=== PATIENT | male | born 1980 | race Caucasian/White ===

== ENCOUNTER → 2023-09-06 15:37 | Outpatient (CLI) | payer BC, SELFPAY ==
--- NOTE | ~2023-09-06 | MR_ITS ---
MRI of the left knee Clinical history: Internal derangement Technique: Coronal proton density and proton density-weighted images, sagittal proton-density and T2 fat-sat images, and axial proton-density fat-saturated images were acquired. Findings: Anterior and posterior cruciate ligaments are intact. Medial collateral ligament and the la teral collateral ligament complex are intact. Popliteus tendon is intact. No lateral meniscal tear seen. There is prominent horizontal/oblique tear involving the posterior hor n and body of medial meniscus. Articular cartilage is well preserved throughout the knee. Bone marrow signals are unremarkable. Extensor mechanism is intact. Minimal joint effusion present. No Davis's cyst. IMPRESSION: Horizontal tear of the posterior horn and body of the medial meniscus. Reviewed, dictated and finalized at location M. TION SPECIALIST
== END ==
PROVIDERS: PCP Family Medicine Sports Medicine; Visit Provider Family Medicine Sports Medicine
DX: S83.242A Other tear of medial meniscus, current injury, left knee, initial encounter (principal); M25.562 Pain in left knee; M23.92 Unspecified internal derangement of left knee
CPT/HCPCS: 73721

== ENCOUNTER → 2023-10-22 13:10 | Outpatient (CLI) | payer BC, SELFPAY ==
--- NOTE | ~2023-10-22 | MR_ITS ---
MRI of the right knee Clinical history: Pain Technique: Coronal proton density and proton density-weighted images, sagittal proton-density and T2 fat-sat images, and axial proton-density fat-saturated images were acquired. Findings: Anterior and posterior cruciate ligaments are intact. Medial collateral ligament and the la teral collateral ligament, proximal are intact. Popliteus tendon is intact. Suspected oblique undersurface tear of the peripheral aspect of the posterior horn the medial meniscu s. No lateral meniscal tear seen. Articular cartilage in the medial and lateral compartments is intact. There is mild chondromalacia of the central aspect of the femoral trochlea. Patellar cartilage is intact. Extensor mechanism is intact. No joint effusion or Davis's cyst. Impression: Suspected oblique undersurface tear of the peripheral aspect of the posterior horn of the medial meni scus versus intrasubstance degenerative signal. Mild chondral malacia the femoral trochlea. Reviewed, dictated and finalized at [facility]. STANT LABORATORY DIRECTOR Impression: Suspected oblique undersurface tear of the peripheral aspect of the posterior h orn of the medial meniscus versus intrasubstance degenerative signal. Mild chondral malacia the femoral trochlea.
== END ==
PROVIDERS: PCP Physician Assistant; Visit Provider Physician Assistant
DX: M25.561 Pain in right knee (principal); M94.261 Chondromalacia, right knee
CPT/HCPCS: 73721

== ENCOUNTER 2025-02-22 16:08 | Emergency (ER) | payer OTHER, SELFPAY ==
--- NOTE | ~2025-02-22 | CT_ITS ---
CLINICAL INDICATION: Abdominal pain nausea and vomiting COMPARISON: None. TECHNIQUE: Multiple contiguous axial images of the abdomen and pelvis were performed following the ad ministration of with 100 mL Omnipaque-350 intravenous contrast The dose-length product (DLP) was 424.39 mGy-cm. Automated exposure control and iterative reconstruction technique were employed. FINDINGS/OBSERVATIONS: Visualized lower thorax: The bilateral lung bases are clear. The heart is of normal size, without pericardial effusion. Small hiatal hernia is present. Liver: The liver demonstrates homogeneous enhancement and is not enlarged. Gallbladder and biliary system: The gallbladder is only minimally distended, and otherwise unremarkable. Pancreas: The pancreas enhances homogeneously without ductal dilatation. Spleen: The spleen enhances homogeneously and is not enlarged. Kidneys: The bilateral kidneys enhance symmetrically without hydronephrosis or renal calculi. Adrenal glands: Unremarkable. Gastrointestinal tract: Colonic diverticulosis without surrounding inflammatory change. Fecal stasis within the colon. Appendix: The air-filled appendix is of normal caliber (axial series, images 108 through 116). Vasculature: Unremarkable. Lymph nodes: No pathologically enlarged or morphologically suspicious lymph nodes within the retroperitoneum or at the root of the mesentery. Pelvic structures: The bladder is significantly distended, and otherwise unremarkable. The prostate gland is not enlarged. Body wall and musculoskeletal: Small fat-containing umbilical hernia. No significant degenerative disease within the lower thoracic or lumbosacral spine. IMPRESSION: No acute pathology within the abdomen or pelvis, as detailed above. Reviewed, dictated and finalized at location A.
[2025-02-22 16:04] VITALS: BP 126/78; PULSE 51; RESP 18; TEMP 36.5; O2SAT 100
[2025-02-22 16:41] LABS: Basophils Percent Auto 0.2 % (0.2-1.2); Eosinophils Percent Auto 0.4 % (0-4.4); Hematocrit 44.4 % (42.0-52.0); Hemoglobin 14.9 g/dL (14.0-18.0); Immature Granulocyte Absolute 0.03 K/mm3 (0.00-0.031); Immature Granulocyte Percent A 0.3 % (0-0.5); Lymphocytes Absolute Auto 1.03 K/mm3 (0.9-3.2); Lymphocytes Percent Auto 10.6 % (18.3-44.2); Mean Corpuscular HGB Conc 33.6 g/dl (32-36); Mean Corpuscular Hemoglobin 30.8 pg (26-34); Mean Corpuscular Volume 91.9 fl (80-100); Monocytes Absolute Auto 0.5 K/mm3 (0.1-0.6); Neutrophils Absolute Auto 8.1 K/mm3 (1.3-6.7); Neutrophils Percent Auto 83.5 % (45.5-73.1); Platelet Count Result 196 k/mm3 (150-375); Red Blood Count 4.83 M/mm3 (4.6-6.20); Red Cell Distribution Width 11.9 % (11.5-14.5); White Blood Count 9.7 K/mm3 (4.5-10.0)
[2025-02-22 16:58] LABS: Alanine Aminotransferase 35 U/L (6-50); Albumin Level 4.6 g/dL (3.5-5.1); Alkaline Phosphatase 74 U/L (38-126); Anion Gap 13 mmol/L (4-12); Aspartate Amino Transferase 26 U/L (17-59); Bilirubin,Total 0.3 mg/dL (0.2-1.3); Blood Urea Nitrogen 14 mg/dL (9-20); Calcium 9.4 mg/dL (8.4-10.2); Carbon Dioxide 25 mmol/L (22-30); Chloride 104 mmol/L (98-107); Estimated CRCL calculation 88 ml/min; Estimated Glomerular Filt Rate > 60; Glucose 146 mg/dL (65-110); Lipase 145 U/L (23-300); Potassium 4.6 mmol/L (3.4-5.0); Sodium 142 mmol/L (137-145)
[2025-02-22 17:32] VITALS: BP 119/77; PULSE 67; RESP 16; O2SAT 98
--- NOTE | 2025-02-22 17:35 | ED_ITS ---
HPI - Nausea/Vomiting/Diarrhea General Chief complaint: Nausea/Vomiting/Diarrhea Stated complaint: Abd pain with diarrhea x 1 hour Time Seen by Provider: 02/22/25 17:06 Source: patient Mode of arrival: ambulatory History of Present Illness HPI Narrative: 44 YEARS OLD WHITE MALE CAME TO THE ED WITH COUGHING, NASAL CONGESTION, RUNNY NOSE, BODY ACHES STARTED 6 DAYS AGO. OVER THE LAST 48 HOURS STARTED HAVING ABDOMINAL PAIN, SHARP, NO RADIATION, NO AGGRAVATING OR RELIEVING FACTORS ASSOCIATED WITH DIARRHEA, CLAMMY SKIN AND CHILLS. PATIENT IS TELLING ME THAT UPPER RESPIRATORY VIRAL INFECTION GOING AROUND IN HIS FAMILY, AND 2 LITTLE KIDS. Related Data Allergies Allergy/AdvReac Type Severity Reaction Status Date / Time No Known Allergies Allergy Verified 02/22/25 16:12 Review of Systems 2 Review of Systems: All systems reviewed & are unremarkable except as noted in HPI and below Exam 2 Narrative: GENERAL APPEARANCE: WELL-DEVELOPED, WELL-NOURISHED SKIN: NORMAL COLOR HEAD: NORMOCEPHALIC, NONTRAUMATIC EYES: CLEAR CONJUNCTIVA ENT: OROPHARYNX NORMAL, EARS NORMAL, NOSE NORMAL NECK: SUPPLE, NONTENDER CHEST AND RESPIRATORY: AIRWAY PATENT, NO RESPIRATORY DISTRESS, NO ACCESSORY MUSCLE USE HEART: REGULAR RATE/RHYTHM ABDOMEN: SOFT, DIFFUSE MID ABDOMINAL TENDERNESS NO ORGANOMEGALY, QUIET BOWEL SOUNDS VASCULAR: NORMAL PERIPHERAL PULSES, NORMAL CAPILLARY REFILL. MUSCULOSKELETAL: NORMAL RANGE OF MOTION, NONTENDER BACK NEUROLOGIC: ALERT AND ORIENTED ?3, GAMEMASTER IS NORMAL TESTED, NO GROSS MOTOR DEFICIT Course Vital Signs Vital signs: Vital Signs Temperature 97.7 F 02/22/25 16:04 Pulse Rate 51 L 02/22/25 16:04 Respiratory Rate 18 02/22/25 16:04 Blood Pressure 126/78 02/22/25 16:04 Pulse Oximetry 100 02/22/25 16:04 Oxygen Delivery Room Air 02/22/25 16:04 Temperature 97.7 F 02/22/25 16:04 Pulse Rate 62 02/22/25 18:46 Respiratory Rate 16 02/22/25 18:46 Blood Pressure 123/76 02/22/25 18:46 Pulse Oximetry 100 02/22/25 18:46 Oxygen Delivery Room Air 02/22/25 16:04 MDM - Nausea/Vomiting/Diarrhea MDM Narrative Medical decision making narrative: PATIENT PRESENTS WITH UPPER RESPIRATORY VIRAL INFECTION LIKE SYMPTOMS, LATELY ABDOMINAL PAIN VITAL SIGNS ARE STABLE PHYSICAL EXAMINATION CONSISTENT WITH [id number] TENDERNESS MID ABDOMEN DIFFERENTIAL DIAGNOSIS INCLUDE UPPER RESPIRATORY VIRAL INFECTION LIKE SYMPTOMS, DEHYDRATION, ELECTROLYTE IMBALANCE, COLITIS, DIVERTICULITIS, APPENDICITIS, URINARY TRACT INFECTION BLOOD WORKUP TODAY INCLUDES CBC, CMP, LIPASE SHOWED insignificant abnormality URINALYSIS SHOWED CT ABDOMEN AND PELVIS WITH IV CONTRAST SHOWED Patient care turned over to Dr. Mclaughlin at shift change, awaiting urinalysis, CT abdomen and pelvis with IV contrast, disposition. Patient been resting quietly in the emergency room without any issues or problems. Differential Diagnosis Differential diagnosis: Likely other ( ABOVE) Medical Records Attestation: I reviewed the patient's medical records. Lab Data Attestation: I reviewed the patient's lab results. 02/22/25 16:34 02/22/25 16:34 Labs: Lab Results 02/22/25 02/22/25 Range/Units 16:34 18:05 WBC 9.7 (4.5-10.0) K/mm3 RBC 4.83 (4.6-6.20) M/mm3 Hgb 14.9 (14.0-18.0) g/dL Hct 44.4 (42.0-52.0) % MCV 91.9 (80-100) fl MCH 30.8 (26-34) pg MCHC 33.6 (32-36) g/dl RDW 11.9 (11.5-14.5) % Plt Count 196 (150-375) k/mm3 MPV 10.0 (7.4-10.4) fl Immature Gran % (Auto) 0.3 (0-0.5) % Neut % (Auto) 83.5 H (45.5-73.1) % Lymph % (Auto) 10.6 L (18.3-44.2) % [place] % (Auto) 5.0 (2.6-8.5) % Eos % (Auto) 0.4 (0-4.4) % Baso % (Auto) 0.2 (0.2-1.2) % Lymph # (Auto) 1.03 (0.9-3.2) K/mm3 [place] # (Auto) 0.5 (0.1-0.6) K/mm3 Eos # (Auto) 0.0 (0-0.3) K/mm3 Baso # (Auto) 0.0 (0.0-0.1) K/mm3 Abs Immat Gran (auto) 0.03 (0.00-0.031) K/mm3 Absolute Neuts (auto) 8.1 H (1.3-6.7) K/mm3 Absolute Nucleated RBC 0.000 (0.0-0.012) K/mm3 Nucleated RBC % 0.0 (0.0-0.2) % Sodium 142 (137-145) mmol/L Potassium 4.6 (3.4-5.0) mmol/L Chloride 104 (98-107) mmol/L Carbon Dioxide 25 (22-30) mmol/L Anion Gap 13 H (4-12) mmol/L BUN 14 (9-20) mg/dL Creatinine 1.04 (0.7-1.3) mg/dL Estim Creat Clear Calc 88 ml/min Estimated GFR > 60 (59 - ) Glucose 146 H (65-110) mg/dL Calcium 9.4 (8.4-10.2) mg/dL Total Bilirubin 0.3 (0.2-1.3) mg/dL AST 26 (17-59) U/L ALT 35 (6-50) U/L Alkaline Phosphatase 74 (38-126) U/L Total Protein 8.0 (6.3-8.2) g/dL Albumin 4.6 (3.5-5.1) g/dL Lipase 145 (23-300) U/L Influenza A (RT-PCR) Negative (Negative) Influenza B (RT-PCR) Negative (Negative) RSV (RT-PCR) Negative (Negative) SARS-CoV-2 RNA (RT-PCR) Positive A (Negative) Critical Care Time Critical Care Time Critical Care Time: No Discharge Plan Discharge Clinical Impression: Acute viral syndrome Patient Disposition: Home Condition: Stable Instructions: Antibiotic Form, Viral Syndrome (ED) Additional Instructions: You seen in the emergency department for a viral syndrome. Use Motrin and Tylenol as needed for fevers and body aches. Please drink plenty of fluids. If you feel your condition is getting worse please follow-up with your primary care physician or come back to emergency department Patient Language: Uzbek Follow-up/Referrals: Jessee,PAUL Dennis [Non-Staff] -
--- NOTE | 2025-02-22 17:39 | PC.NURSE ---
Pt received 1000mL of NS IV from EMS.
[2025-02-22] MEDS: SODIUM CHLORIDE 0.9% IV 1,000 ML 999 ML IV CONT (18:07)
--- OUTSIDE RECORDS SUMMARY | 2025-02-22 18:37 | XMS_ITS | Referral Summary ---
Author Organization [facility] [address] Address [address] [place] [id number] Care Team Providers Care Photocopying Equipment Repairer Name Role Phone Larry Jones MD Unavailable [phone] Miscellaneous, Not In File Primary Care Provider Unavailable Encounters Date Type Department Care Team Description 02/08/2025 11:35 AM CDT Office Visit [facility] [address] [place] [address] [address] [phone] Michelle Garrett NP Abscess of right groin (Primary Dx) 02/01/2025 Results Follow-Up [facility] Emergency Department [address] [place] [address] August Smith PA 02/01/2025 11:10 AM CDT Office Visit [facility] [address] [place] [address] [address], [place] [id number] Robert Mullins MD Abscess of right groin (Primary Dx) 01/29/2025 10:20 PM CDT - 01/30/2025 12:23 AM CDT Emergency [facility] Emergency Department [address] [place] [address] Evelia Nguyen MD Cellulitis and abscess of leg (Primary Dx) Discharge Disposition: Discharge to home or self care 01/29/2025 3:15 PM CDT Office Visit [facility] at [address] [phone] Natalia Mcginnis NP Abscess of right groin (Primary Dx); Cellulitis of right groin from Last 3 Months Allergies Active Allergy Reactions Criticality Noted Date Comments Celecoxib Rash Medium 09/29/2023 Naproxen Rash Medium 02/08/2025 Prednisone Unknown 02/01/2025 Medications albuterol HFA (PROVENTIL HFA,VENTOLIN HFA,PROAIR HFA) 90 mcg/actuation inhaler Inhale 2 puffs every 4 (four) hours as needed for wheezing or shortness of breath 1 each 05/02/20 24 Active naloxone (NARCAN) 4 mg/actuation spray,non-aer osol Administer 1 spray into affected nostril(s) as needed for opioid reversal or respiratory depression Call 911. Administer a single spray in one nostril. Repeat every 3 minutes as needed if no or minimal response. 1 each 02/02/20 25 Active Additional Information Patient not taking.Reported on 02/08/2025 magnesium hydroxide (BARRETO CHEWS) 311 mg tablet,chewab le chewable tablet Take 1 tablet (311 mg total) by mouth daily 025 Discontinued(T herapy completed) guaiFENesin 1,200 mg tablet extended release 12hr Take 1 capsule by mouth as needed 025 Discontinued(T herapy completed) ascorbic acid (VITAMIN C) 500 mg tablet,chewab le Take 1 tablet/chew tab (500 mg total) by mouth 2 (two) times a day 60 tablet/chew tab 09/09/20 025 Discontinued(T herapy completed) cholecalcifer ol (VITAMIN D-3) 2000 unit capsule Take 1 capsule (2,000 Units total) by mouth daily 30 capsule 09/09/20 025 Discontinued(T herapy completed) ondansetron (ZOFRAN) 4 mg tabletIndicat ions:Preventi on of Post-Operativ e Nausea and Vomiting Take 1 tablet (4 mg total) by mouth every 6 (six) hours as needed for nausea or vomiting 20 tablet 1 09/09/20 23 025 Discontinued(T herapy completed) senna-docusat e (PERICOLACE) 8.6-50 mg Take 1 tablet by mouth 2 (two) times a day as needed for constipation 30 tablet 1 09/09/20 025 Discontinued(T herapy completed) oxyCODONE-caleb taminophen (PERCOCET) 5-325 mg per tabletIndicat ions:Pain Take 1-2 tablets by mouth every 4 (four) hours as needed for pain 30 tablet 09/10/20 025 Discontinued(T herapy completed) hydrOXYzine (VISTARIL) 50 mg capsuleIndica tions:Allergi c Dermatitis Take 1 capsule (50 mg total) by mouth 3 (three) times a day as needed for itching 30 capsule 1 09/29/20 025 Discontinued(T herapy completed) meloxicam (MOBIC) 15 mg tabletIndicat ions:Osteoart hritis Take 1 tablet (15 mg total) by mouth daily With food 30 tablet 1 09/30/20 025 Discontinued(T herapy completed) sulfamethoxaz ole-trimethop rim (BACTRIM DS) 800-160 mg per tablet Take 1 tablet by mouth 2 (two) times a day for 7 days smx-tmp DS (BACTRIM) 800-160 mg tabs 14 tablet 01/30/20 025 Discontinued clotrimazole 1 % creamIndicati ons:tinea cruris Apply topically 2 (two) times a day Use 1-3 weeks or until symptoms subside 30 g 01/30/20 025 Discontinued clotrimazole 1 % creamIndicati ons:tinea cruris Apply topically 2 (two) times a day Use 1-3 weeks or until symptoms subside 30 g 01/31/20 025 Discontinued(T herapy completed) sulfamethoxaz ole-trimethop rim (BACTRIM DS) 800-160 mg per tablet Take 1 tablet by mouth 2 (two) times a day for 7 days smx-tmp DS (BACTRIM) 800-160 mg tabs 14 tablet 01/31/20 25 025 HYDROcodone-a cetaminophen (NORCO) 5-325 mg per tabletIndicat ions:Pain Take 1 tablet by mouth every 6 (six) hours as needed for pain for up to 7 days 28 tablet 02/02/20 25 025 Additional Information Patient not taking.Reported on 02/08/2025 Active Problems Problem Noted Date Diagnosed Date Abscess of right groin 02/08/2025 Assessment & Plan (02/08/2025 8:06 AM CDT): The patient still has a fluctuant area that needs to be opened. We will plan for incision and drainage in the office today. We have discussed the need for packing to be placed in this to be changed on a daily basis. They are in understanding of the plan. S/P left knee arthroscopy 09/09/2023 Social History Tobacco Use Types Packs/Day Years Used Date Smoking Tobacco: Never Tobacco Cessation:Counseling Given: Not Answered Personal Safety Answer Date Recorded Have you ever been in or are you currently in a harmful physical or emotional relationship or is someone making you feel afraid or unsafe? Denies 01/29/2025 Sex and Gender Information Value Date Recorded Sex Assigned at Not on file Legal Sex Male 12:27 PM CDT Gender Identity Not on file Sexual Orientation Not on file Last Filed Vital Signs Vital Sign Reading Time Taken Comments Blood Pressure 136/88 02/08/2025 11:18 AM CDT Pulse 72 02/08/2025 11:18 AM CDT Temperature 36.2 C (97.1 F) 02/08/2025 11:18 AM CDT Respiratory Rate 16 01/30/2025 12:0 1 AM CDT Oxygen Saturation 97% 02/08/2025 11: 18 AM CDT Inhaled Oxygen Concentration - - Weight 91.1 kg (200 lb 12.8 oz) 025 11:18 AM CDT Height 170.2 cm (5' 7 ) 02/08/2025 11:1 8 AM CDT Body Mass Index 31.45 02/08/2025 11:18 AM CDT Plan of Treatment Not on file Procedures Procedure Name Priority Date/Time Associated Diagnosis Comments AEROBIC CULTURE AND GRAM STAIN Routine 01/29/2025 11:26 PM CDT IA INCISION & DRAINAGE ABSCESS SIMPLE/SINGLE Routine 01/29/2025 10:59 PM CDT EGFR STAT 01/29/2025 10:20 PM CDT DIFFERENTIAL AUTO STAT 01/29/2025 10: 20 PM CDT COMPREHENSIVE METABOLIC PANEL STAT 01/29/2025 10:20 PM CDT CBC WITH AUTO DIFFERENTIAL STAT 01/29/2025 10:20 PM CDT from Last 3 Months Results * (ABNORMAL) Aerobic culture and gram stain Abscess Leg, right (01/29/2025 11:26 PM CDT) Direct Specimen Exam Stain: No polymorphonuclear leukocytes seen. Abundant Gram Negative Bacilli Comment:Testing performed by : [facility], [address] [place]., [address] Report Final Report: Abundant Morganella morganii (.) [facility] Comment:Testing performed by : [facility], [address] [place]., [address] Organism MORGANELLA MORGANII [facility] Abscess (Leg, right) 01/29/2025 11:26 PM CDT 01/30/2025 6:01 AM CDT Narrative [facility] - 02/07/2025 2:56 PM CDT Specimen received on an ESwab. Testing performed by [facility] ([phone]) Specimens submitted from normally sterile body sites will have all bacterial morphotypes identified. Specimens that contain grossly mixed derek and/or are from body sites that are not normally sterile will be examined for Staphylococcus aureus, Pseudomonas aeruginosa, beta-hemolytic strep, vancomycin-resistant Enterococcus and fungus. If any of these are isolated, the organism will be reported. Current interpretive data was last revised on 2017. Organism Antibiotic Method Susceptibility Morganella morganii Ampicillin INTERPRETATION Resistant Morganella morganii Cefazolin INTERPRETATION Resistant Morganella morganii Gentamicin INTERPRETATION Susceptible Morganella morganii Ampicillin with Sulbactam INTERPRE TATION Resistant Morganella morganii Trimethoprim with Sulfamethoxazole INTERPRETATION Susceptible Morganella morganii Meropenem INTERPRETATION Susceptible Morganella morganii Cefepime INTERPRETATION Susceptible Morganella morganii Ciprofloxacin INTERPRETATION Susceptible Morganella morganii Ceftazidime INTERPRETATION Susceptible Morganella morganii Ceftriaxone INTERPRETATION Susceptible Morganella morganii Piperacillin/Tazobactam INTERPRETA TION Susceptible us Evelia Nguyen MD LAB MICROBIOLOGY - GENERAL ORDER BAKARI Final Result [facility] [place] [address] [facility] Department [place] [address] * IA INCISION & DRAINAGE ABSCESS SIMPLE/SINGLE (01/29/2025 10:59 PM CDT) Narrative Evelia Nguyen MD - 01/29/2025 10:59 PM CDT Evelia Nguyen MD 01/29/2025 11:44 PM Incision and Drainage Date/Time: 01/29/2025 10:59 PM Performed by: Evelia Nguyen MD Authorized by: Evelia Nguyen MD RN Notified of Procedure: yes Informed consent: Risks, benefits, alternatives discussed Patient's stated name/ matches armband: Yes and patient unable to verbalize - armband matched to name and within medical record Type: Abscess Location: Lower extremity Lower extremity location: R leg Skin preparation: Betadine Anesthesia method: Topical application and local infiltration Topical anesthetic: LET gel Local anesthetic: Lidocaine 1% WITH epi Needle aspiration: no Incision types: Stab incision Incision depth: Dermal Scalpel blade: 11 Wound management: Probed and deloculated Drainage: Bloody and purulent Drainage amount: Copious Wound treatment: Wound left open Packing materials: None Patient tolerance of procedure: Tolerated well, no immediate complications us Evelia Nguyen MD IN CLINIC/BEDSIDE ORDERABLES Fin al Result * eGFR (01/29/2025 10:20 PM CDT) eGFR >90 >=60 mL/min/1. 73 m2 Comment: Interpretive Data Reference Interval Normal >/= 90 mL/min/1.73m2 Mildly decreased* 60 - 89 mL/min/1.73m2 Mildly to moderately decreased 45 - 59 mL/min/1.73m2 Moderately to severely decreased 30 - 44 mL/min/1.73m2 Severely decreased 15 - 29 mL/min/1.73m2 Kidney Failure < 15 mL/min/1.73m2 *Relative to young adult level Estimated glomerular filtration rate is determined by the 2020 CKD-EPI equation recommended by the National Kidney Foundation (A Unifying Approach to GFR Estimation: Recommendations of the NKF-ASK Task Force on Reassessing the Inclusion of Race in Diagnosing Kidney Disease, JASN 202). The CKD-EPI equation should not be used for patients with unstable renal function and has not been validated in children and those over 70. Current interpretive data was last reviewed 2021. Blood 01/29/2025 10:2 0 PM CDT 01/29/2025 10:25 PM CDT us Evelia Nguyen MD LAB BLOOD ORDERABLES Final Resul t [facility] 1 [facility] Department [place] [address] * (ABNORMAL) Differential, auto (01/29/2025 10:20 PM CDT) Neutrophil abs 8.0(H) 1.5 - 6.5 K/cumm Imm gran abs 0.1 0.0 - 0.1 K/cumm [facility] Lymphocyte abs 1.2 0.8 - 3.3 K/cumm [facility] Monocyte abs 0.8 0.2 - 0.8 K/cumm [facility] Eosinophil abs 0.1 0.0 - 0.5 K/cumm [facility] Basophil abs 0.0 0.0 - 0.1 K/cumm [facility] Neutrophil pct 79.0 % [facility] Comment: Interpretive Data Percent cell count reference ranges are not reported, since discordance with absolute values may lead to misinterpretation of CBC data. Current Interpretive Data was last revised on 2018. Imm gran pct 0.5 % [facility] Comment: Interpretive Data Percent cell count reference ranges are not reported, since discordance with absolute values may lead to misinterpretation of CBC data. Current Interpretive Data was last revised on 2018. Lymphocyte pct 11.9 % [facility] Comment: Interpretive Data Percent cell count reference ranges are not reported, since discordance with absolute values may lead to misinterpretation of CBC data. Current Interpretive Data was last revised on 2018. Monocyte pct 7.7 % [facility] Comment: Interpretive Data Percent cell count reference ranges are not reported, since discordance with absolute values may lead to misinterpretation of CBC data. Current Interpretive Data was last revised on 2018. Eosinophil pct 0.7 % [facility] Comment: Interpretive Data Percent cell count reference ranges are not reported, since discordance with absolute values may lead to misinterpretation of CBC data. Current Interpretive Data was last revised on 2018. Basophil pct 0.2 % [facility] Comment: Interpretive Data Percent cell count reference ranges are not reported, since discordance with absolute values may lead to misinterpretation of CBC data. Current Interpretive Data was last revised on 2018. Blood 01/29/2025 10:2 0 PM CDT 01/29/2025 10:25 PM CDT us Evelia Nguyen MD LAB BLOOD ORDERABLES Final Resul t [facility] Department [place] [address] * (ABNORMAL) CBC with auto differential (01/29/2025 10:20 PM CDT) WBC 10.2(H) 3.8 - 9.9 K/cumm Hgb 16.1 13.0 - 17.5 g/dL [facility] Hct 46.4 38.9 - 50.3 % [facility] Plt 232 150 - 400 K/cumm [facility] MPV 9.8 9.1 - 12.3 fL [facility] RBC 5.14 4.30 - 5.80 M/cumm [facility] MCV 90.3 81.3 - 96.4 fL [facility] MCH 31.3 27.1 - 33.3 pg [facility] MCHC 34.7 32.3 - 35.7 g/dL [facility] RDW CV 11.9 11.1 - 14.9 % [facility] RDW SD 39.2 35.7 - 48.1 fL [facility] NRBC abs 0.00 0.00 - 0.01 K/cumm [facility] Blood 01/29/2025 10:2 0 PM CDT 01/29/2025 10:25 PM CDT us Evelia Nguyen MD LAB BLOOD ORDERABLES Final Resul t [facility] 1 [facility] Department [place] [address] * Comprehensive metabolic panel (01/29/2025 10:20 PM CDT) Sodium 135 135 - 145 mmol/L Potassium, pl 3.9 3.3 - 4.9 mmol/L [facility] Chloride 99 97 - 110 mmol/L [facility] CO2 24 22 - 32 mmol/L [facility] Anion gap 12 2 - 15 mmol/L [facility] BUN 10 6 - 25 mg/dL [facility] Creatinine 0.99 0.80 - 1.30 mg/dL [facility] Glucose 82 70 - 199 mg/dL [facility] Comment: Interpretive Data Fasting glucose >/= 126 mg/dl is diagnostic for diabetes. Fasting is defined as no caloric intake for at least 8 hours. Fasting glucose between 100 mg/dl to 125 mg/dl is diagnostic of prediabetes. In a patient with classic symptoms of hyperglycemia or hyperglycemic crisis, a random glucose >/= 200 mg/dl is diagnostic for diabetes. In the absence of unequivocal hyperglycemia, results should be confirmed by repeat testing. The classification and Diagnosis of Diabetes Diabetes Care 2021; 46: S19-S40. Current interpretive data was last revised 2022. Calcium 9.4 8.5 - 10.3 mg/dL [facility] Bilirubin, total 0.5 0.1 - 1.2 mg/dL [facility] Protein, pl 7.7 6.5 - 8.5 g/dL [facility] Albumin 4.7 3.5 - 5.0 g/dL [facility] Alk phos 87 40 - 130 Units/L [facility] ALT 25 7 - 55 Units/L [facility] AST 18 10 - 50 Units/L [facility] Blood 01/29/2025 10:2 0 PM CDT 01/29/2025 10:25 PM CDT us Evelia Nguyen MD LAB BLOOD ORDERABLES Final Resul t [facility] [place] [address] from Last 3 Months Insurance [facility] Care Teams Photocopying Equipment Repairer Relationship Specialty Start Date End Date Miscellaneous, Not In File PCP - General 01/29/25 Larry Jones MD [address] [place] [address] (work) Surgeon Orthopedic Surgery 09/09/23
--- OUTSIDE RECORDS SUMMARY | 2025-02-22 18:37 | XMS_ITS | Encounter Summary ---
Author Organization [facility] Address [address] [place] [address] Care Team Providers Care Community Engagement Specialist Name Role Phone Larry Jones MD Unavailable Miscellaneous, Not In File Primary Care Provider Unavailable Encounter Details Date Type Department Care Team (Late st Contact Info) Description 02/01/2025 Results Follow-Up [facility] Emergency Department [address] [place] [address] August Smith PA [address] [facility] [place] [address] Social History Tobacco Use Types Packs/Day Years Used Date Smoking Tobacco: Never Personal Safety Answer Date Recorded Have you ever been in or are you currently in a harmful physical or emotional relationship or is someone making you feel afraid or unsafe? Denies 01/29/2025 Sex and Gender Information Value Date Recorded Sex Assigned at Not on file Legal Sex Male 12:27 PM CDT Gender Identity Not on file Sexual Orientation Not on file documented as of this encounter Miscellaneous Notes * Result Encounter Note - August Smith PA - 02/08/2025 1:05 PM CDT Final report shows susceptible to Bactrim. No change in treatment. Sent patient a message in [employer] * Result Encounter Note - August Smith PA - 02/01/2025 10:35 PM CDT Patient was started on Bactrim. Report shows susceptible. No change in treatment. documented in this encounter Plan of Treatment Not on file documented as of this encounter Visit Diagnoses Not on filedocumented in this encounter Care Teams Community Engagement Specialist Relationship Specialty Start Date End Date Miscellaneous, Not In File PCP - General 01/29/25 Larry Jones MD [address] [place] [address] DR VALLEJO B [address] [address] Surgeon Orthopedic Surgery 09/09/23 documented as of this encounter
--- OUTSIDE RECORDS SUMMARY | 2025-02-22 18:37 | XMS_ITS | Clinical Summary ---
Author Organization [facility] [address] Address [address] [place] [id number] Care Team Providers Care Rn Spine Name Role Phone Larry Jones MD Unavailable [phone] Miscellaneous, Not In File Primary Care Provider Unavailable Allergies Active Allergy Reactions Criticality Noted Date [...] nausea or vomiting 20 tablet 1 09/09/20 025 Discontinued(T herapy completed) senna-docusat e (PERICOLACE) [...] up to 7 days 28 tablet 02/02/20 025 Additional Information Patient not taking.Reported on [...] the plan. S/P left knee arthroscopy 09/09/2023 Encounters Date Type Department Care Team Description 02/08/2025 11:35 AM CDT Office Visit [facility] [address] [place] [address] [address] [place] [address] Michelle Garrett NP Abscess of right groin (Primary Dx) 02/01/2025 11:10 AM CDT Office Visit [facility] [address] [place] [address] [address] [place] [address] Robert Mullins MD Abscess of right groin (Primary Dx) 02/01/2025 Results Follow-Up [facility] Emergency Department [address] [place] [address] August Smith PA 01/29/2025 10:20 PM CDT - 01/30/2025 12:23 AM CDT Emergency [facility] Emergency Department [address] [place] [address] Evelia Nguyen MD Cellulitis and abscess of leg (Primary Dx) Discharge Disposition: Discharge to home or self care 01/29/2025 3:15 PM CDT Office Visit [facility] Care at [address] [address] Natalia Mcginnis NP Abscess of right groin (Primary Dx); Cellulitis of right groin from Last 3 Months Surgical History Surgery Date Site/Laterality Comments KNEE SURGERY Left Medical History Medical History Date Comments Asthma Family History Medical History Relation Name Comments Diabetes Mother Arthritis Other Relation Name Status Comments Father Alive Mother Alive Other Social History Tobacco Use Types Packs/Day Years [...] on file Sexual Orientation Not on file Obstetrics History Last Filed Vital Signs Vital Sign Reading [...] 02/08/2025 11:18 AM CDT Plan of Treatment Health Maintenance Due Date Last Done Comments Depression Screening 1982 Hepatitis C Screening 1982 Varicella Vaccines (1 of 2 - 13+ 2-dose series) 1995 DTaP/Tdap/Td Vaccine (6 - Tdap) 04/04/1997 04/03/1997, 04/02/1987, 09/15/1983, Additional history exists Regular Well Visit/Exam 18-64 02/26/2000 Pneumococcal vaccine <65 (1 of 2 - PCV) 2001 Influenza Vaccine (Season Ended) 2025 Hepatitis B Screening Completed 10/09/1997 , 05/08/1997, 04/03/1997 HPV Vaccines Aged Out No longer eligi ble based on patient's age to complete this topic Procedures Procedure Name Priority Date/Time Associated Diagnosis Comments AEROBIC CULTURE AND GRAM STAIN Routine 01/29/2025 11:26 PM CDT PA INCISION & DRAINAGE ABSCESS SIMPLE/SINGLE Routine 01/29/2025 [...] Gram Negative Bacilli Comment:Testing performed by : [facility], [address] [place]., [address] Report Final Report: Abundant Morganella morganii (.) [facility] ([place]) Comment:Testing performed by : [facility], [address] [place]., [address] Organism MORGANELLA MORGANII [facility] ([place]) Abscess (Leg, right) 01/29/2025 11:26 PM CDT 01/30/2025 6:01 AM CDT Narrative [facility] ([place]) - 02/07/2025 2:56 PM CDT Specimen received on an ESwab. Testing performed by [facility] ([phone]) Specimens submitted from normally sterile body sites [...] GENERAL ORDER BAKARI Final Result [facility] [place] [address] [facility] Department of Laboratories [place] [id number] * PA INCISION & DRAINAGE ABSCESS SIMPLE/SINGLE (01/29/2025 10:59 [...] of Race in Diagnosing Kidney Disease, JASN 2020). The CKD-EPI equation should not be used for patients with unstable renal function and has not been validated in children and those over 70. Current interpretive data was last reviewed 2021. Blood 01/29/2025 10:2 0 PM CDT 01/29/2025 10:25 PM CDT us Evelia Nguyen MD LAB BLOOD ORDERABLES Final Resul t [facility] ([place] [address] [facility] [place] [address] * (ABNORMAL) Differential, auto (01/29/2025 10:20 PM CDT) Neutrophil abs 8.0(H) 1.5 - 6.5 K/cumm Imm gran abs 0.1 0.0 - 0.1 K/cumm [facility] Lymphocyte abs 1.2 0.8 - 3.3 K/cumm [facility] ([place]) Monocyte abs 0.8 0.2 - 0.8 K/cumm [...] Imm gran pct 0.5 % [facility] ([place]) Comment: Interpretive Data [...] MD LAB BLOOD ORDERABLES Final Resul t [facility] [address] [facility] [place] [address] * (ABNORMAL) CBC with auto differential (01/29/2025 [...] NRBC abs 0.00 0.00 - 0.01 K/cumm [facility] Blood 01/29/2025 10:2 0 PM CDT 01/29/2025 10:25 PM CDT us Evelia Nguyen MD LAB BLOOD ORDERABLES Final Resul t [facility] 1 [facility] [place] [address] * Comprehensive metabolic panel (01/29/2025 10:20 PM CDT) Pathologist [facility] Sodium 135 135 - 145 mmol/L Potassium, [...] ([place]) Glucose 82 70 - 199 mg/dL [facility] ([place]) Comment: Interpretive Data Fasting glucose [...] classification and Diagnosis of Diabetes Diabetes Care 202; 46: S19-S40. Current interpretive data was last [...] Final Resul t [facility] ([place]) 1 [facility] [place] [address] from Last 3 Months Insurance [facility] Care Teams Rn Spine Relationship Specialty Start Date End Date Miscellaneous, Not In File PCP - General 01/29/25 Larry Jones MD [address] [place] [address] Surgeon Orthopedic Surgery 09/09/23
--- OUTSIDE RECORDS SUMMARY | 2025-02-22 18:37 | XMS_ITS | Data Portability ---
Author Organization [facility] [address] [place] [address] Care Team Providers Care Cupola Liner Name Role Phone INA TRAN Primary Care Provider Assessment Encounter Date Assessment Date Assessment LastModified by Organization Details LastModified Time 08/14/2024 08/14/2024 blood work. We will try some clotrimazole ointment he will let me know in a week or 2 if not improved if it does improve and blood work negative he will see me annually. Recommended to get flu shot and COVID shot because of his history of asthma [email or web address] Not available 08/19/2024 21:45:39 10/10/2024 10/10/2024 COVID and flu negative doxycycline for a week chest x-ray call if not improved overweight healthy lifestyle care instructions [email or web address] Not available 10/11/2024 22:58:46 02/01/2025 02/01/2025 abscess partially drained open but not draining anything further maybe septated we will have him see General surgery they may need to re numb it and explore it he is already on antibiotics continue those [email or web address] Not available 02/03/2025 16:32:26 Plan of Treatment Reminders Order Date Submit Date Provider Last Modified By Organization Details Last Modified Time Details Appointments ANNUAL 30 2024 03:00P M Ina Tran MD Not available Not available Not available Lab influenza virus A + B + SARS-CoV- 2 (COVID19) Ag panel, rapid IA, upper respirato ry specimen 2023 024 [id number] In-Office Order, Internal Use Only DO Not Attach Compendium DO Not Attach Compendium, Do Not Delete/merge, [id number] 10/10/2024 13:05:54 lipid panel, serum 2023 [facility], [address], [address], [place], [address], 10/11/2024 11:14:44 CMP, serum or plasma 2023 [facility], [address], [address], [place], [address], 10/11/2024 11:14:45 CBC w/ auto diff 2023 [facility], [address], [address], [place], [address], 10/11/2024 11:14:48 TSH + free T4, serum 2023 [facility], [address] [facility] [address], [place], [address], 10/11/2024 11:14:43 T3, free, serum or plasma 2023 024 [facility], [address], [address], [place], [address], 10/11/2024 11:14:49 HbA1c (hemoglob in A1c), blood 2023 [facility], [address], [address], [place], [address], 10/11/2024 11:14:47 Referral None recorded. Procedures None recorded. Surgeries None recorded. Imaging XR, chest 2023 [facility], [address], [address] [facility], [place], [address], 10/12/2024 15:36:09 Medication Orders doxycycli ne hyclate 100 mg capsule 2023 024 [id number], [address] [place], [address], 02/01/2025 10:15:38 Patient TargetsNo targets recorded. Patient Instructions Encounter Date Encounter Id Patient Instructions Last Modified By Organization Details Last Modified Time 10/10/2024 [id number] A healthy lifestyle: care instructions [email or web address] Not available 10/10/2024 11:08:02 02/01/2025 [id number] A healthy lifestyle: care instructions [email or web address] Not available 02/01/2025 16:43:00 Reason for Referral None Reported. Results Created Date Observation Date Name Description Value Unit Range Abnormal Flag Note LastModifiedBy Organization Detail LastModifiedTime 10/10/2010/11/2024 TSH+F REE T4 TSH 1.140 uIU/m L 0.450- 4.500 Not Available [facility] ([facility]) [address] [place], [address], 10/11/2024 11:14:43 10/10/2010/11/2024 TSH+F REE T4 T4,free(dire ct) 1.12 NG/dL 0.82-1 .77 Not Available [facility] ([facility]) [address] [place], [address], 10/11/2024 11:14:43 10/10/20 24 10/11/2024 LIPID PANEL cholesterol, total 242 mg/dL 100-19 9 above high normal Not Available [facility] ([place] [facility]) [address] [place], [address], 10/11/2024 11:14:44 10/10/20 24 10/11/2024 LIPID PANEL triglyceride s 176 mg/dL 0-149 above high normal Not Available [facility] ([facility]) [address] [place], [address], 10/11/2024 11:14:44 10/10/20 24 10/11/2024 LIPID PANEL HDL cholesterol 37 mg/dL >39 below low normal Not Available [facility] ([facility]) [address] [place], [address], 10/11/2024 11:14:44 10/10/20 24 10/11/2024 LIPID PANEL VLDL cholesterol bravo 33 mg/dL 5-40 Not Available [facility] ([facility]) [address] [place], [address], 10/11/2024 11:14:44 10/10/20 24 10/11/2024 LIPID PANEL LDL chol calc ([facility]) 172 mg/dL 0-99 above high normal Not Available [facility] ([facility]) [address] [place], [address], 10/11/2024 11:14:44 10/10/20 24 10/11/2024 COMP. METAB OLIC PANEL (14) glucose 106 mg/dL 70-99 above high normal Not Available [facility] ([facility]) [address] [place], [address], 10/11/2024 11:14:45 10/10/20 24 10/11/2024 COMP. METAB OLIC PANEL (14) BUN 17 mg/dL 6-24 Not Available [facility] ([facility]) [address] [place], [address], 10/11/2024 11:14:45 10/10/20 24 10/11/2024 COMP. METAB OLIC PANEL (14) creatinine 1.08 mg/dL 0.76-1 .27 Not Available [facility] ([facility]) [address] [place], [address], 10/11/2024 11:14:45 10/10/20 24 10/11/2024 COMP. METAB OLIC PANEL (14) eGFR 88 mL/mi n/1.7 3 >59 Not Available [facility] ([facility]) [address] [place], [address], 10/11/2024 11:14:45 10/10/20 24 10/11/2024 COMP. METAB OLIC PANEL (14) BUN/creatini ne ratio 16 9-20 Not Available [facility] ([facility]) [address], [place], [address], 10/11/2024 11:14:45 10/10/20 24 10/11/2024 COMP. METAB OLIC PANEL (14) sodium 141 mmol/ L 134-14 4 Not Available [facility] ([facility]) [address] [facility] [place], [address], 10/11/2024 11:14:45 10/10/20 24 10/11/2024 COMP. METAB OLIC PANEL (14) potassium 4.4 mmol/ L 3.5-5. 2 Not Available [facility] ([facility]) [address] [facility], [place], [address], 10/11/2024 11:14:45 10/10/20 24 10/11/2024 COMP. METAB OLIC PANEL (14) chloride 103 mmol/ L 96-106 Not Available [facility] ([facility]) [address] [facility] [place], [address], 10/11/2024 11:14:45 10/10/20 24 10/11/2024 COMP. METAB OLIC PANEL (14) carbon dioxide, total 21 mmol/ L 20-29 Not Available [facility] ([facility]) [address] [facility], [place], [address], 10/11/2024 11:14:45 10/10/20 24 10/11/2024 COMP. METAB OLIC PANEL (14) calcium 9.2 mg/dL 8.7-10 .2 Not Available [facility] ([facility]) [address] [facility] [place], [address], 10/11/2024 11:14:45 10/10/20 24 10/11/2024 COMP. METAB OLIC PANEL (14) protein, total 7.1 g/dL 6.0-8. 5 Not Available [facility] ([facility]) [address] [facility], [place], [address], 10/11/2024 11:14:45 10/10/20 24 10/11/2024 COMP. METAB OLIC PANEL (14) albumin 4.5 g/dL 4.1-5. 1 Not Available [facility] ([facility]) [address] [facility], [place], [address], 10/11/2024 11:14:45 10/10/20 24 10/11/2024 COMP. METAB OLIC PANEL (14) globulin, total 2.6 g/dL 1.5-4. 5 Not Available [facility] ([facility]) [address] [facility], [place], [address], 10/11/2024 11:14:45 10/10/20 24 10/11/2024 COMP. METAB OLIC PANEL (14) bilirubin, total 0.3 mg/dL 0.0-1. 2 Not Available [facility] ([facility]) [address] [facility], [place], [address], 10/11/2024 11:14:45 10/10/20 24 10/11/2024 COMP. METAB OLIC PANEL (14) alkaline phosphatase 90 IU/L 44-121 Not Available [facility] ([facility]) [address] [facility], [place], [address], 10/11/2024 11:14:45 10/10/20 24 10/11/2024 COMP. METAB OLIC PANEL (14) AST (SGOT) 26 IU/L 0-40 Not Available [facility] ([facility]) [address] [facility], [place], [address], 10/11/2024 11:14:45 10/10/20 24 10/11/2024 COMP. METAB OLIC PANEL (14) ALT (SGPT) 25 IU/L 0-44 Not Available [facility] ([facility]) [address] [facility], [place], [address], 10/11/2024 11:14:45 10/10/20 24 10/11/2024 HEMOG LOBIN A1C hemoglobin A1C 5.7 % 4.8-5. 6 above high normal Predi abete s: 5.7 - 6.4 Diabe zev: >6.4 Glyce lino contr ol for adult s with diabe zev: <7.0 Not Available [facility] ([facility]) [address] [facility], [place], [address], 10/11/2024 11:14:46 10/10/20 24 10/11/2024 CBC WITH DIFFE RENTI AL/PL ATELE T WBC 7.6 x10e3 /uL 3.4-10 .8 Not Available [facility] ([facility]) [address] [facility], [place], [address], 10/11/2024 11:14:48 10/10/20 24 10/11/2024 CBC WITH DIFFE RENTI AL/PL ATELE T RBC 4.55 x10e6 /uL 4.14-5 .80 Not Available [facility] ([facility]) [address] [facility], [place], [address], 10/11/2024 11:14:48 10/10/20 24 10/11/2024 CBC WITH DIFFE RENTI AL/PL ATELE T hemoglobin 14.5 g/dL 13.0-1 7.7 Not Available [facility] ([facility]) [address] [place], [address], 10/11/2024 11:14:48 10/10/20 24 10/11/2024 CBC WITH DIFFE RENTI AL/PL ATELE T hematocrit 42.6 % 37.5-5 1.0 Not Available [facility] ([facility]) [address] [place], [address], 10/11/2024 11:14:48 10/10/20 24 10/11/2024 CBC WITH DIFFE RENTI AL/PL ATELE T MCV 94 fL 79-97 Not Available [facility] ([facility]) [address] [facility], [place], [address], 10/11/2024 11:14:48 10/10/20 24 10/11/2024 CBC WITH DIFFE RENTI AL/PL ATELE T MCH 31.9 pg 26.6-3 3.0 Not Available [facility] ([facility]) [address] [facility], [place], [address], 10/11/2024 11:14:48 10/10/20 24 10/11/2024 CBC WITH DIFFE RENTI AL/PL ATELE T MCHC 34.0 g/dL 31.5-3 5.7 Not Available [facility] ([facility]) [address] [facility], [place], [address], 10/11/2024 11:14:48 10/10/20 24 10/11/2024 CBC WITH DIFFE RENTI AL/PL ATELE T RDW 11.8 % 11.6-1 5.4 Not Available [facility] ([facility]) [address] [facility], [place], [address], 10/11/2024 11:14:48 10/10/20 24 10/11/2024 CBC WITH DIFFE RENTI AL/PL ATELE T platelets 280 x10e3 /uL 150-45 0 Not Available [facility] ([facility]) [address] [facility], [place], [address], 10/11/2024 11:14:48 10/10/20 24 10/11/2024 CBC WITH DIFFE RENTI AL/PL ATELE T neutrophils 65 % notest ab. Not Available [facility] ([facility]) [address] [place], [address], 10/11/2024 11:14:48 10/10/20 24 10/11/2024 CBC WITH DIFFE RENTI AL/PL ATELE T lymphs 19 % notest ab. Not Available [facility] ([facility]) [address] [facility], [place], [address], 10/11/2024 11:14:48 10/10/20 24 10/11/2024 CBC WITH DIFFE RENTI AL/PL ATELE T monocytes 14 % notest ab. Not Available [facility] ([facility]) [address] [facility], [place], [address], 10/11/2024 11:14:48 10/10/20 24 10/11/2024 CBC WITH DIFFE RENTI AL/PL ATELE T eos 2 % notest ab. Not Available [facility] ([facility]) [address] [facility], [place], [address], 10/11/2024 11:14:48 10/10/20 24 10/11/2024 CBC WITH DIFFE RENTI AL/PL ATELE T basos 0 % notest ab. Not Available [facility] ([facility]) [address] [facility], [place], [address], 10/11/2024 11:14:48 10/10/20 24 10/11/2024 CBC WITH DIFFE RENTI AL/PL ATELE T neutrophils (absolute) 4.9 x10e3 /uL 1.4-7. 0 Not Available [facility] ([facility]) [address] [facility], [place], [address], 10/11/2024 11:14:48 10/10/20 24 10/11/2024 CBC WITH DIFFE RENTI AL/PL ATELE T lymphs (absolute) 1.5 x10e3 /uL 0.7-3. 1 Not Available [facility] ([facility]) [address] [facility], [place], [address], 10/11/2024 11:14:48 10/10/20 24 10/11/2024 CBC WITH DIFFE RENTI AL/PL ATELE T monocytes(ab solute) 1.1 x10e3 /uL 0.1-0. 9 above high normal Not Available [facility] ([facility]) [address] [place], [address], 10/11/2024 11:14:48 10/10/20 24 10/11/2024 CBC WITH DIFFE RENTI AL/PL ATELE T eos (absolute) 0.1 x10e3 /uL 0.0-0. 4 Not Available [facility] ([facility]) [address] [place], [address], 10/11/2024 11:14:48 10/10/20 24 10/11/2024 CBC WITH DIFFE RENTI AL/PL ATELE T baso (absolute) 0.0 x10e3 /uL 0.0-0. 2 Not Available [facility] ([facility]) [address] [place], [address], 10/11/2024 11:14:48 10/10/20 24 10/11/2024 CBC WITH DIFFE RENTI AL/PL ATELE T immature granulocytes 0 % notest ab. Not Available [facility] ([facility]) [address] [place], [address], 10/11/2024 11:14:48 10/10/20 24 10/11/2024 CBC WITH DIFFE RENTI AL/PL ATELE T immature grans (abs) 0.0 x10e3 /uL 0.0-0. 1 Not Available [facility] ([facility]) [address] [place], [address], 10/11/2024 11:14:48 10/10/20 24 10/11/2024 TRIIO DOTHY MARGAUX E (T3), FREE triiodothyro nine (T3), free 3.1 pg/mL 2.0-4. 4 Not Available [facility] ([facility]) [address] [place], [address], 10/11/2024 11:14:49 10/10/20 24 10/10/2024 influ lina virus A + B + SARS- CoV-2 (COVI D19) Ag panel , rapid IA, upper respi rator y speci men Flu A negati ve Not Available In-Office Order Internal Use Only DO Not Attach Compendium DO Not Attach Compendium, Do Not Delete/merge, [id number] 10/10/2024 11:28:29 10/10/20 24 10/10/2024 influ lina virus A + B + SARS- CoV-2 (COVI D19) Ag panel , rapid IA, upper respi rator y speci men Flu B negati ve Not Available In-Office Order Internal Use Only DO Not Attach Compendium DO Not Attach Compendium, Do Not Delete/merge, [id number] 10/10/2024 11:28:29 10/10/20 24 10/10/2024 influ lina virus A + B + SARS- CoV-2 (COVI D19) Ag panel , rapid IA, upper respi rator y speci men Rapid SARS CoV 2 Ag, QL IA, respiratory specimen negati ve Not Available In-Office Order Internal Use Only DO Not Attach Compendium DO Not Attach Compendium, Do Not Delete/merge, [id number] 10/10/2024 11:28:29 10/12/20 24 10/11/2024 XR, chest No observ ation record ed. [facility] [address], [place], [address], 10/17/2024 09:08:31 Result Notes None recorded. Problems Name Problem SNOMED Code Status Onset Date Resolution Date Notes Provider Name and Address Organization Details Recorded Time Balanitis 09772932 Active 024 NATALIO [place], [place] - [facility] 4 15:48:54 Eruption 583323212 Active 024 NATALIO [place], [place] - [facility] 4 15:48:55 Asthma 966157875 Active 024 Ina Tran MD Attn: Accounting ,[address] [facility], [place], [address] , [place] [facility] 21:45:39 Problem Notes None recorded. Procedures Surgical History None recorded. Imaging Results Imaging Date Name Status LastModified by Organiz ation Details LastModified Time 10/11/2024 XR, chest completed [facility] [address], [place], [address], 10/17/2024 09:08:31 Procedure Notes None recorded. Medical Equipment None Reported. Allergies Allergen ID Allergen Name Allergen Category Reaction Reaction Severity Criticality Documentation Date Start Date Code Code System Note Provider Name and Address Organization Details Recorded Time 162774 naproxen medicatio n Not available Not available Not available 10/10/2024 7258 RxNorm Not Available Not Available Not Available 888547 prednison e medicatio n Not available Not available Not available 10/10/2024 8640 RxNorm Not Available Not Available Not Available 788256 celecoxib medicatio n rash Not available high 02/01/20252022 48883 7 RxNorm Not Available Not Available Not Available Medications Name Sig Start Date Stop Date Status Note LastModified by Organization Details LastModified Time celecoxib 200 mg capsule 10/10 completed Not Available Not Available Not Available doxycycline hyclate 100 mg capsule 02/01 completed Not Available Not Available Not Available benzonatate 200 mg capsule TAKE 1 CAPSULE BY MOUTH 3 TIMES A DAY NEEDED FOR COUGH 02/01 completed Not Available Not Available Not Available hydrocodone 5 mg-acetamin ophen 325 mg tablet TAKE 1 TABLET BY MOUTH EVERY 6 HOURS NEEDED FOR PAIN 10/10 completed Not Available Not Available Not Available meloxicam 15 mg tablet 10/10 completed Not Available Not Available Not Available hydroxyzine pamoate 50 mg capsule 10/10 completed Not Available Not Available Not Available aspirin 81 mg tablet,makenzie yed release TAKE 1 TABLET BY MOUTH TWICE DAILY FOR 14 DAYS 02/01 completed Not Available Not Available Not Available oxycodone-a cetaminophe n 5 mg-325 mg tablet TAKE 1 TO 2 TABLETS BY MOUTH EVERY 4 HOURS NEEDED FOR PAIN 10/10 completed Not Available Not Available Not Available albuterol sulfate HFA 90 mcg/actuati on aerosol inhaler TAKE 2 PUFFS BY MOUTH EVERY 4 HOURS NEEDED FOR WHEEZING OR FOR SHORTNESS OF BREATH active Not Available Not Available No t Available Stool Softener-La xative 8.6 mg-50 mg tablet TAKE 1 TABLET BY MOUTH TWICE DAILY NEEDED CONSTIPAT ION 10/10 completed Not Available Not Available Not Available cholecalcif aden (vitamin D3) 50 mcg (2,000 unit) capsule TAKE 1 CAPSULE BY MOUTH DAILY 10/10 completed Not Available Not Available Not Available Vitals Date Recorded Heart rate Oxygen saturation Oxygen saturation in Arterial blood by Pulse oximetry Body height Body mass index (BMI) Body weight Systolic blood pressure Diastolic blood pressure Provider Name and Address Organization Details Last Updated DateTime 4 90 /min 99 % 99 % 170.18 cm 31 kg/m2 10375.2 9 g 136 mm[Hg] 82 mm[Hg] Fernanda Pathak MA [facility] 4 15:14:00 Date Recorded Body height Body mass index (BMI) Body weight Heart rate Oxygen saturation Oxygen saturation in Arterial blood by Pulse oximetry Systolic blood pressure Diastolic blood pressure Provider Name and Address Organization Details Last Updated DateTime 4 170.18 cm 31.7 kg/m2 73456.4 5 g 97 /min 97 % 97 % 110 mm[Hg] 70 mm[Hg] Adela Luke [facility] 4 10:56:03 Date Recorded Body height Body mass index (BMI) Body weight Heart rate Oxygen saturation Oxygen saturation in Arterial blood by Pulse oximetry Systolic blood pressure Diastolic blood pressure Provider Name and Address Organization Details Last Updated DateTime 5 170.18 cm 30.9 kg/m2 12862.4 9 g 69 /min 99 % 99 % 122 mm[Hg] 82 mm[Hg] Adela Luke [facility] 5 10:15:09 Social History Question Answer Notes LastModified by Organizat ion Details LastModified Time Tobacco Smoking Status Never Smoker Fernanda Pathak MA [facility] 08/14/2024 15:16:14 Do You Have An Advance Directive? Yes Information n ot available 08/14/2024 What Is Your Level Of Alcohol Consumption? Occasional Information not available 08/14/2024 Are You Blind Or Do You Have Difficulty Seeing? No Information n ot available 08/14/2024 What Is Your Level Of Caffeine Consumption? Moderate Information not available 08/14/2024 In The 14 Days Before Symptom Onset, Have You Had Close Contact With A Laboratory-confirm ed COVID-19 While That Case Was Ill? No Information n ot available 08/14/2024 In The 14 Days Before Symptom Onset, Have You Had Close Contact With A Person Who Is Under Investigation For COVID-19 While That Person Was Ill? No Information not available 08/14/2024 Have You Been To An Area Known To Be High Risk For COVID-19? No Information not available 08/14/2024 Are You Currently Employed? Yes Information not available 08/14/2024 Are You Deaf Or Do You Have Serious Difficulty Hearing? No Information not available 08/14/2024 What Type Of Diet Are You Following? REGULAR Information n ot available 08/14/2024 What Is The Highest Grade Or Level Of School You Have Completed Or The Highest Degree You Have Received? [id number] Information not available 08/14/2024 Are There Any Guns Present In Your Home? No Information not available 08/14/2024 What Was The Date Of Your Most Recent Tobacco Screening? 02/01/2025 Information not available 02/01/2025 What Is Your Relationship Status? Information not available 08/14/2024 Do You Use Your Seat Belt Or Car Seat Routinely? Yes Information not available 08/14/2024 Do You Have Smoke And Carbon Monoxide Detectors In Your Home? Yes Information not available 08/14/2024 Do You Use Any Illicit Or Recreational Drugs? No Information not available 08/14/2024 Do You Use Sunscreen Routinely? No Information not available 08/14/2024 Has Tobacco Cessation Counseling Been Provided? No Information not available 02/01/2025 Sex: Male Functional Status Question Answer Note LastModified by Organization D etails LastModified Time Are you able to care for yourself? Yes Information not available 08/14/2024 What is your exercise level? Moderate Information not available 08/14/2024 Mental Status None recorded. Family History Nothing Reported. Medical History Condition Response Asthma Y Immunizations Vaccine Type Date Status Note Provider Nam socorro and Address Organization Details Recorded Time MMR 2 completed Nazia Wakefiedl [place], [place] [facility] 10/24/2024 12:06:01 MMR 3 completed Nazia [place] [facility] 10/24/2024 12:06:01 DTP 7 completed Nazia [place] [facility] 10/24/2024 12:06:01 DTP 2 completed Nazia [place] [facility] 10/24/2024 12:06:01 DTP 2 completed Nazia [place] [facility] 10/24/2024 12:06:01 DTP 2 completed Nazia [place] [facility] 10/24/2024 12:06:01 DTP 3 completed Nazia [place] [facility] 10/24/2024 12:06:01 OPV 7 completed Nazia [place] [facility] 10/24/2024 12:06:01 OPV 2 completed Nazia [place] [facility] 10/24/2024 12:06:01 OPV 2 completed Nazia [place] [facility] 10/24/2024 12:06:01 OPV 3 completed Nazia [place] [facility] 10/24/2024 12:06:01 Td (adult), 2 Lf tetanus toxoid, preservative free, adsorbed 7 completed [place] [facility] 10/24/2024 12:06:01 Hep B, adolescent/high risk 7 completed [place] [facility] 10/24/2024 12:06:01 Hep B, adolescent/high risk infant 7 completed Nazia [place] [facility] 10/24/2024 12:06:01 Hep B, adult 7 completed Nazia [place] [facility] 10/24/2024 12:06:01 Past Encounters Encounter ID Performer Location Encounter Start Date Encounter Closed Date Diagnosis/Indication Diagnosis SNOMED-CT Code Diagnosis ICD10 Code Diagnosis Note [id number] Ina Tran MD [email or web address] - [place] [address] [place] [address] 08/14/2024 14:51:55 08/14/2024 15:52:28 Eruption 696738038 R21 Balanitis 52288109 N48.1 Screening for cardiovascular system disease 811766415 Z13.6 Long-term drug therapy 322077021 Z79.891 Asthma 999958634 J45.90 9 [id number] Ina Tran MD [facility] (Adult Med) [address] [place] [phone] 10/10/2024 10:41:13 10/10/2024 11:48:22 Body mass index 30+ - obesity 770675701 Z68.31 Overweight 441037732 E66 .3 Cough 58924219 R05.9 [id number] Ina Tran MD [email or web address] - [place] [address] [place] [address] 02/01/2025 10:04:28 02/01/2025 11:03:55 Body mass index 30+ - obesity 897935966 Z68.31 Overweight 432457754 E66 .3 Abscess of groin 0399796 9 L02.214 Health Concerns Section Related Observation LastModified by Organization Detai ls LastModified Time None Recorded Concern Status LastModified by Organization Details LastModified Time None Recorded Advance Directives Directive Y: Payers Encounter Date Sequence Insurance Name Policy Number Policy Mukherjee Covered Member ID Mukherjee Member ID Guarantor Name 08/14/2024 1 [employer] [place] - DOS ON OR AFTER 2020 (MEDICAID REPLACEMENT - HMO) Hayden Marshall [id number] Hayden Marshall 10/10/2024 1 [employer] [place] - [place] ON [place] AFTER 2020 (MEDICAID REPLACEMENT - HMO) Hayden Marshall [id number] Hayden Marshall 02/01/2025 1 [facility] - DOS ON OR AFTER 21 (MEDICAID REPLACEMENT - HMO) Hayden Marshall [id number] Hayden Marshall Notes Date Note Type Note Provider Name and Address Organization Details Recorded Time 08/14/2024 text/html 44-year-old new patient he has got some rash penis several months itches also history of eczema has had asthma in the past has been intermittent. Meds albuterol p.r.n. allergies Naprosyn rashsurgeries he has had cartilage repair left knee family history mother had a stroke and diabetes. His dad and 2 uncles have had heart valves repaired does not smoke alcohol is occasional Ina Tran MD Attn: Accounting, [address] [facility], [place], [address], [facility] 08/19/2024 21:45:59 10/10/2024 text/html Cough congestion no wheezing yellow sputum a couple of weeks no travel no sick contacts at home incidentally he has not seen the urologist yet he is going in a couple of weeks Ina Tran MD Attn: Accounting, [address] [facility], [place], [address], [facility] 10/11/2024 22:59:05 02/01/2025 text/html abscess right groin ER incision and drainage but they could not get a lot of the pus out he said now it hurts still no fever no chills Ina Tran MD Attn: Accounting, [address] [facility], [place], [address], [facility] 02/03/2025 16:33:03
[2025-02-22 18:46] VITALS: BP 123/76; PULSE 62; RESP 16; O2SAT 100
--- NOTE | 2025-02-22 18:50 | PC.NURSE ---
Pt called out stating he was in pain, EDP Dr. Shafer; made aware. No new orders at this time. CT at bedside to take pt down for CT scan.
--- NOTE | 2025-02-22 18:52 | PC.NURSE ---
Attempted multiple times for UA, pt states he is unable to void at this time.
[2025-02-22 18:54] LABS: Influenza A QL RT-PCR Negative (Negative); Influenza B QL RT-PCR Negative (Negative); RSV RNA, RT-PCR Negative (Negative); SARS-CoV-2 RNA PCR Positive (Negative)
[2025-02-22] MEDS: HYDROmorphone HCL INJ (*CRX) 2 MG/ML VIAL 0.5 MG IV PUSH (19:32)
[2025-02-22] MEDS: ONDANSETRON INJ 4 MG/2 ML VIAL IV PUSH (19:32)
[2025-02-22 19:57] VITALS: BP 131/80; PULSE 66; RESP 18; TEMP 36.6; O2SAT 98
[2025-02-22 20:14] LABS: Add Urine Microscopic? NO; Appearance Urine Clear (Clear); Bilirubin Urine Negative (Negative); Blood Urine Negative (Negative); Color Urine Yellow (Yellow); Glucose Urine UA Negative (Negative); Ketones Urine Negative (Negative); Leukocyte Esterase Ur Negative LEU/UL (Negative); Nitrate Urine Negative (Negative); Protein Urine Negative (Negative); Specific Grav Ur 1.039 (1.001-1.035); Urobilinogen Urine 0.2 mg/dL (<2.0)
== END 2025-02-22 20:15 | disposition home or self-care (01) ==
PROVIDERS: Student in an Organized Health Care Education/Training Program; Emergency Provider Emergency Medicine; PCP Internal Medicine
DX: B34.9 Viral infection, unspecified (principal); Z20.822 Contact with and (suspected) exposure to COVID-19
CPT/HCPCS: 36415; 74177; 80053; 81003; 83690; 85025; 87637; 96361; 96374; 96375; 99284; J1171; J2405; J7030; Q9967

== ENCOUNTER 2025-04-06 17:37 | Outpatient (CLI) | payer OTHER, SELFPAY ==
--- NOTE | ~2025-04-06 | XR_ITS ---
EXAM: XR lumbar spine 2-3V DATE: 04/06/2025 18:03 HISTORY: CERVICALGIA/LUMBAGO WITH SCATICA UNSPECIFIED . COMPARISON: None available. FINDINGS: 5 nonrib-bearing lumbar-type vertebral bodies. Pedicles intact. Normal vertebral body alig nment. Vertebral body heights preserved. Mild disc space narrowing and marginal osteophytosis at L4-5 and L5-S1. Moderate facet hypertrophy and sclerosis at L4-5 and L5-S1. No fracture or dislocation. IMPRESSION: Mild lumbar degenerative disc disease and moderate facet arthropathy at L4-5 and L5-S1. Reviewed, dictated and finalized at location K. IMPRESSION: Mild lumbar degenerative disc disease and moderate facet arthropath y at L4-5 and L5-S1.
--- NOTE | ~2025-04-06 | XR_ITS ---
EXAM: XR_CERV2-3V_CR DATE: 04/06/2025 18:03 HISTORY: CERVICALGIA/LUMBAGO WITH SCATICA UNSPECIFIED . COMPARISON: None available. FINDINGS: Craniocervical association and atlantoaxial joint are aligned. Mild degenerative change at the atlantodental interval. No prevertebral soft tissue swelling. Vertebral bodies are aligned. Vert ebral body heights are maintained. Mild disc space narrowing at C4-5. Moderate disc space narrowing a nd mild marginal osteophytosis at C5-6. Mild mid and lower facet hypertrophy and sclerosis. IMPRESSION: Mild cervical degenerative disc disease. Mild mid and lower cervical facet arthropathy. Reviewed, dictated and finalized at location K. IMPRESSION: Mild cervical degenerative disc disease. Mild mid and lower cervica l facet arthropathy.
--- OUTSIDE RECORDS SUMMARY | 2025-04-06 17:41 | XMS_ITS | Referral Summary ---
Author Organization [facility] [place] [address] Address [address] [place] [phone] Care Team Providers Care Kitchenhand Name Role Phone Larry Jones MD Unavailable [phone] Miscellaneous, Not In File Primary Care Provider Unavailable Encounters Date Type Department Care Team Description 02/08/2025 11:35 AM CDT Office Visit [facility] [address] [place] [address] [address] [place] [phone] Michelle Garrett NP Abscess of right groin (Primary Dx) 02/01/2025 Results Follow-Up [facility] Emergency Department 1 [place] [address] August Smith PA Aerobic culture and gram stain Abscess Leg, right 02/01/2025 11:10 AM CDT Office Visit [address] [place] [phone] Robert Mullins MD Abscess of right groin (Primary Dx) 01/29/2025 10:20 PM CDT - 01/30/2025 12:23 AM CDT Emergency [facility] Emergency Department 1 [place] [address] Evelia Nguyen MD Cellulitis and abscess of leg (Primary Dx) Discharge Disposition: Discharge to home or self care 01/29/2025 3:15 PM CDT Office Visit [facility] Medical Group [facility] Care at [address] [address] Mcginnis, Natalia B., ENDOSCOPE TECHNICIAN Abscess of right groin (Primary Dx); Cellulitis of right groin from Last 3 Months Allergies Active Allergy Reactions Criticality Noted Date Comments Celecoxib Rash Medium 09/29/2023 Naproxen Rash Medium 02/08/2025 Prednisone Unknown 02/01/2025 Medications albuterol HFA (PROVENTIL HFA,VENTOLIN HFA,PROAIR HFA) 90 mcg/actuation inhaler Inhale 2 puffs every 4 (four) hours as needed for wheezing or shortness of breath 1 each 4 Active naloxone (NARCAN) 4 mg/actuation spray,non-aeros ol Administer 1 spray into affected nostril(s) as needed for opioid reversal or respiratory depression Call 911. Administer a single spray in one nostril. Repeat every 3 minutes as needed if no or minimal response. 1 each 5 Active Additional Information Patient not taking.Reported on [...] 11:18 AM CDT Height 170.2 cm (5' 7) 02/08/2025 11:1 8 AM CDT Body Mass Index 31.45 02/08/2025 11:18 AM CDT Plan of Treatment Not on file Procedures Procedure Name Priority Date/Time Associated Diagnosis Comments AEROBIC CULTURE AND GRAM STAIN Routine 01/29/2025 11:26 PM CDT [place] INCISION & DRAINAGE ABSCESS SIMPLE/SINGLE Routine 01/29/2025 [...] Gram Negative Bacilli Comment:Testing performed by : [facility], 1 [facility] [place] [address] Report Final Report: Abundant Morganella morganii (.) [facility] ([place]) Comment:Testing performed by : [facility], 1 [place]., [address] Organism MORGANELLA MORGANII [facility] ([place]) Abscess (Leg, right) 01/29/2025 11:26 PM CDT 01/30/2025 6:01 AM CDT Narrative [facility] ([place]) - 02/07/2025 2:56 PM CDT Specimen received on an ESwab. Testing performed by [facility] ([phone]) Specimens submitted from normally sterile body sites [...] GENERAL ORDER BAKARI Final Result [facility] [place] 1 [facility] Department of Laboratories [place] [id number] * [place] INCISION & DRAINAGE ABSCESS SIMPLE/SINGLE (01/29/2025 10:59 [...] MD LAB BLOOD ORDERABLES Final Resul t [facility] ([place]) 1 [facility] [place] [address] * (ABNORMAL) Differential, auto (01/29/2025 10:20 PM CDT) Neutrophil abs 8.0(H) 1.5 - 6.5 K/cumm Imm gran abs 0.1 0.0 - 0.1 K/cumm [facility] Lymphocyte abs 1.2 0.8 - 3.3 K/cumm [facility] ([place]) Monocyte abs 0.8 0.2 - 0.8 K/cumm [...] Lymphocyte pct 11.9 % [facility] ([place]) Comment: Interpretive Data Percent cell count reference ranges are not reported, since discordance with absolute values may lead to misinterpretation of CBC data. Current Interpretive Data was last revised on 2018. Monocyte pct 7.7 % [facility] ([place]) Comment: Interpretive Data Percent cell count reference [...] 2018. Basophil pct 0.2 % [facility] ([place] Comment: Interpretive Data Percent cell count reference ranges are not reported, since discordance with absolute values may lead to misinterpretation of CBC data. Current Interpretive Data was last revised on 2018. Blood 01/29/2025 10:2 0 PM CDT 01/29/2025 10:25 PM CDT us Evelia Nguyen MD LAB BLOOD ORDERABLES Final Resul t [facility] ([place] 1 [facility] [place] [address] * (ABNORMAL) CBC with auto differential (01/29/2025 [...] RDW SD 39.2 35.7 - 48.1 fL [facility] NRBC abs 0.00 0.00 - 0.01 K/cumm [facility] ([place]) Blood 01/29/2025 10:2 0 PM CDT 01/29/2025 10:25 PM CDT us Evelia Nguyen MD LAB BLOOD ORDERABLES Final Resul t [facility] 1 [facility] [place] [address] * Comprehensive metabolic panel (01/29/2025 10:20 PM CDT) Sodium 135 135 - 145 mmol/L Potassium, pl 3.9 3.3 - 4.9 mmol/L [facility] Chloride 99 97 - 110 mmol/L [facility] CO2 24 22 - 32 mmol/L [facility] Anion gap 12 2 - 15 mmol/L [facility] BUN 10 6 - 25 mg/dL [facility]) Creatinine 0.99 0.80 - 1.30 [...] Final Resul t [facility] ([place] 1 [facility] [place] [address] from Last 3 Months Insurance [facility] Care Teams Kitchenhand Relationship Specialty Start Date End Date Miscellaneous, Not In File PCP - General 01/29/25 Larry Jones MD [address] [place] [address] [address] [place] [address] Surgeon Orthopedic Surgery 09/09/23
--- OUTSIDE RECORDS SUMMARY | 2025-04-06 17:41 | XMS_ITS | Clinical Summary ---
Author Organization [facility] [address] [place] Address [address] [place] [phone] Care Team Providers Care Sawmill Relief Worker Name Role Phone Larry Jones MD Unavailable [phone] Miscellaneous, Not In File Primary Care Provider [...] Description 02/08/2025 11:35 AM CDT Office Visit [facility] [address] [place] [address] [address] [place] [address] Michelle Garrett NP Abscess of right groin (Primary Dx) 02/01/2025 11:10 AM CDT Office Visit [address] [place] [address] Robert Mullins MD Abscess of right groin (Primary Dx) 02/01/2025 Results Follow-Up [facility] Emergency Department 1 [place] [address] August Smith PA Aerobic culture and gram stain Abscess Leg, right 01/29/2025 10:20 PM CDT - 01/30/2025 12:23 AM CDT Emergency [facility] Emergency Department 1 [place] [address] Evelia Nguyen MD Cellulitis and abscess of leg (Primary Dx) Discharge Disposition: Discharge to home or self care 01/29/2025 3:15 PM CDT Office Visit [facility] Medical Group [facility] Care at [address] [phone] Natalia Mcginnis NP Abscess of [...] GRAM STAIN Routine 01/29/2025 11:26 PM CDT [place] INCISION & DRAINAGE ABSCESS SIMPLE/SINGLE Routine 01/29/2025 [...] Gram Negative Bacilli Comment:Testing performed by : [facility], 1 [place]., [address] Report Final Report: Abundant Morganella morganii (.) [facility] ([place]) Comment:Testing performed by : [facility], 1 [place]., [address] Organism MORGANELLA MORGANII [facility] ([place]) Abscess (Leg, right) 01/29/2025 11:26 PM CDT 01/30/2025 6:01 AM CDT Narrative [facility] ([place]) - 02/07/2025 2:56 PM CDT Specimen received on an ESwab. Testing performed by [facility]biology [facility] ([phone]) Specimens submitted from normally sterile body sites [...] GENERAL ORDER BAKARI Final Result [facility] ([place]) 1 [facility] [place] [address] * [place] INCISION & DRAINAGE ABSCESS SIMPLE/SINGLE (01/29/2025 10:59 [...] of procedure: Tolerated well, no immediate complications Evelia Nguyen MD IN CLINIC/BEDSIDE ORDERABLES Fin [...] BLOOD ORDERABLES Final Resul t [facility] ([place]) 1 [facility] [place] [address] * (ABNORMAL) Differential, auto (01/29/2025 10:20 PM CDT) Neutrophil abs 8.0(H) 1.5 - 6.5 K/cumm Imm gran abs 0.1 0.0 - 0.1 K/cumm [facility] ([place]) Lymphocyte abs 1.2 0.8 - 3.3 K/cumm [facility] ([place]) Monocyte abs 0.8 0.2 - 0.8 K/cumm [facility] ([place]) Eosinophil abs 0.1 0.0 - 0.5 K/cumm [facility] ([place]) Basophil abs 0.0 0.0 - 0.1 K/cumm [facility] ([place]) Neutrophil pct 79.0 % [facility] ([place]) Comment: Interpretive Data Percent cell count reference ranges are not reported, since discordance with absolute values may lead to misinterpretation of CBC data. Current Interpretive Data was last revised on 2018. Imm gran pct 0.5 % [facility] ([place]) Comment: Interpretive Data Percent cell count reference [...] Final Resul t [facility] ([place] 1 [facility] Department [place] [address] * (ABNORMAL) CBC with auto differential (01/29/2025 [...] NRBC abs 0.00 0.00 - 0.01 K/cumm [facility] ([place]) Blood 01/29/2025 10:2 0 PM CDT 01/29/2025 10:25 PM CDT us Evelia Nguyen MD LAB BLOOD ORDERABLES Final Resul t [facility] ([place] 1 [facility] [place] [address] * Comprehensive metabolic panel (01/29/2025 10:20 PM [...] BLOOD ORDERABLES Final Resul t [facility] ([place] 1 [facility] [place] [address] from Last 3 Months Insurance [facility] Care Teams Sawmill Relief Worker Relationship Specialty Start Date End Date Miscellaneous, Not In File PCP - General 01/29/25 Larry Jones MD [address] [place] [address] [address] [place] [address] Surgeon Orthopedic Surgery 09/09/23
--- OUTSIDE RECORDS SUMMARY | 2025-04-06 17:41 | XMS_ITS | Data Portability ---
[facility] Organization [facility] [address] [place] [address] Care Team Providers Care Instructor Knitting Name Role Phone INA TRAN Primary Care [...] shot because of his history of asthma [email or web address] Not available 08/19/2024 21:45:39 10/10/2024 10/10/2024 COVID and flu negative doxycycline for a week chest x-ray call if not improved overweight healthy lifestyle care instructions Not available 10/11/2024 22:58:46 02/01/2025 02/01/2025 abscess partially drained open but not draining anything further maybe septated we will have him see General surgery they may need to re numb it and explore it he is already on antibiotics continue those [email or web address] Not available 02/03/2025 16:32:26 Plan of Treatment Reminders Order Date Submit Date Provider Last Modified By Organization Details Last Modified Time Details Appointments ANNUAL 30 2024 03:00P M Ina Tran MD Not available Not available Not available Lab influenza virus A + B + SARS-CoV- 2 (COVID19) Ag panel, rapid IA, upper respirato ry specimen 2023 024 [id number] In-Office Order, Internal Use Only DO Not Attach Compendium DO Not Attach Compendium, Do Not Delete/merge, [id number] 10/10/2024 13:05:54 lipid panel, serum 2023 [facility], [address], [address], [place], [address], 10/11/2024 11:14:44 CMP, serum or plasma 2023 [facility], [address], [address], [place], [address], 10/11/2024 11:14:45 CBC w/ auto diff 2023 [facility], [address], [address], [place], [address], 10/11/2024 11:14:48 TSH + free T4, serum 2023 [facility], [address] [facility] [address], [place], [address], 10/11/2024 11:14:43 T3, free, serum or plasma 2023 024 [facility], [address], [address], [place], [address], 10/11/2024 11:14:49 HbA1c (hemoglob in A1c), blood 2023 [facility], [address], [address], [place], [address], 10/11/2024 11:14:47 Referral None recorded. Procedures None recorded. Surgeries None recorded. Imaging XR, chest 2023 [facility], [address], [facility], [place], [address], 10/12/2024 15:36:09 Medication Orders doxycycli ne hyclate 100 mg capsule 2023 024 [facility] #[id number], [address] [place], [address], 02/01/2025 10:15:38 Patient TargetsNo targets recorded. Patient Instructions Encounter Date Encounter Id Patient Instructions Last Modified By Organization Details Last Modified Time 10/10/2024 [id number] A healthy lifestyle: care instructions [email or web address] Not available 10/10/2024 11:08:02 02/01/2025 [id number] A healthy lifestyle: care instructions Not available 02/01/2025 16:43:00 Reason for Referral None Reported. Results Created Date Observation Date Name Description Value Unit Range Abnormal Flag Note LastModifiedBy Organization Detail LastModifiedTime 10/10/2010/11/2024 TSH+F REE T4 TSH 1.140 uIU/m L 0.450- 4.500 Not Available [facility] ([facility]) [address] [place], [address], 10/11/2024 11:14:43 10/10/2010/11/2024 TSH+F REE T4 T4,free(dire ct) 1.12 NG/dL 0.82-1 .77 Not Available [facility] ([facility]) [address] [place], [address], 10/11/2024 11:14:43 10/10/20 24 10/11/2024 LIPID PANEL cholesterol, total 242 mg/dL 100-19 9 above high normal Not Available [facility] ([facility]) [address] [place], [address], 10/11/2024 11:14:44 10/10/20 24 10/11/2024 LIPID PANEL triglyceride s 176 mg/dL 0-149 above high normal Not Available [facility] ([facility]) [address] [place], [address], 10/11/2024 11:14:44 10/10/20 24 10/11/2024 LIPID PANEL HDL cholesterol 37 mg/dL >39 below low normal Not Available [facility] ([facility]) [address] [place], [address], 10/11/2024 11:14:44 10/10/20 24 10/11/2024 LIPID PANEL VLDL cholesterol bravo 33 mg/dL 5-40 Not Available [facility] ([facility]) [address] [place], [address], 10/11/2024 11:14:44 10/10/20 24 10/11/2024 LIPID PANEL LDL chol calc ([facility]) 172 mg/dL 0-99 above high normal Not Available [facility] ([facility]) [address] [place], [address], 10/11/2024 11:14:44 10/10/20 24 10/11/2024 COMP. METAB OLIC PANEL (14) glucose 106 mg/dL 70-99 above high normal Not Available [facility] ([facility]) [address] [place], [address], 10/11/2024 11:14:45 10/10/20 24 10/11/2024 COMP. METAB OLIC PANEL (14) BUN 17 mg/dL 6-24 Not Available [facility] ([facility]) [address] [place], [address], 10/11/2024 11:14:45 10/10/20 24 10/11/2024 COMP. METAB OLIC PANEL (14) creatinine 1.08 mg/dL 0.76-1 .27 Not Available [facility] ([facility]) [address] [place], [address], 10/11/2024 11:14:45 10/10/20 24 10/11/2024 COMP. METAB OLIC PANEL (14) eGFR 88 mL/mi n/1.7 3 >59 Not Available [facility] ([facility]) [address] [place], [address], 10/11/2024 11:14:45 10/10/20 24 10/11/2024 COMP. METAB OLIC PANEL (14) BUN/creatini ne ratio 16 9-20 Not Available [facility] ([facility]) [address], [place], [address], 10/11/2024 11:14:45 10/10/20 24 10/11/2024 COMP. METAB OLIC PANEL (14) sodium 141 mmol/ L 134-14 4 Not Available [facility] ([facility]) [address] [facility] [place], [address], 10/11/2024 11:14:45 10/10/20 24 10/11/2024 COMP. METAB OLIC PANEL (14) potassium 4.4 mmol/ L 3.5-5. 2 Not Available [facility] ([facility]) [address] [facility], [place], [address], 10/11/2024 11:14:45 10/10/20 24 10/11/2024 COMP. METAB OLIC PANEL (14) chloride 103 mmol/ L 96-106 Not Available [facility] ([facility]) [address] [facility] [place], [address], 10/11/2024 11:14:45 10/10/20 24 10/11/2024 COMP. METAB OLIC PANEL (14) carbon dioxide, total 21 mmol/ L 20-29 Not Available [facility] ([facility]) [address] [facility], [place], [address], 10/11/2024 11:14:45 10/10/20 24 10/11/2024 COMP. METAB OLIC PANEL (14) calcium 9.2 mg/dL 8.7-10 .2 Not Available [facility] ([facility]) [address] [facility] [place], [address], 10/11/2024 11:14:45 10/10/20 24 10/11/2024 COMP. METAB OLIC PANEL (14) protein, total 7.1 g/dL 6.0-8. 5 Not Available [facility] ([facility]) [address] [facility], [place], [address], 10/11/2024 11:14:45 10/10/20 24 10/11/2024 COMP. METAB OLIC PANEL (14) albumin 4.5 g/dL 4.1-5. 1 Not Available [facility] ([facility]) [address] [facility], [place], [address], 10/11/2024 11:14:45 10/10/20 24 10/11/2024 COMP. METAB OLIC PANEL (14) globulin, total 2.6 g/dL 1.5-4. 5 Not Available [facility] ([facility]) [address] [facility], [place], [address], 10/11/2024 11:14:45 10/10/20 24 10/11/2024 COMP. METAB OLIC PANEL (14) bilirubin, total 0.3 mg/dL 0.0-1. 2 Not Available [facility] ([facility]) [address] [facility], [place], [address], 10/11/2024 11:14:45 10/10/20 24 10/11/2024 COMP. METAB OLIC PANEL (14) alkaline phosphatase 90 IU/L 44-121 Not Available [facility]) [address] [facility], [place], [address], 10/11/2024 11:14:45 10/10/20 24 10/11/2024 COMP. METAB OLIC PANEL (14) AST (SGOT) 26 IU/L 0-40 Not Available [facility] ([facility]) [address] [facility], [place], [address], 10/11/2024 11:14:45 10/10/20 24 10/11/2024 COMP. METAB OLIC PANEL (14) ALT (SGPT) 25 IU/L 0-44 Not Available [facility] ([facility]) [address] [facility], [place], [address], 10/11/2024 11:14:45 10/10/20 24 10/11/2024 HEMOG LOBIN A1C hemoglobin A1C 5.7 % 4.8-5. 6 above high normal Predi abete s: 5.7 - 6.4 Diabe zev: >6.4 Glyce lino contr ol for adult s with diabe zev: <7.0 Not Available [facility] ([facility]) [address] [facility], [place], [address], 10/11/2024 11:14:46 10/10/20 24 10/11/2024 CBC WITH DIFFE RENTI AL/PL ATELE T WBC 7.6 x10e3 /uL 3.4-10 .8 Not Available [facility] ([facility]) [address] [facility], [place], [address], 10/11/2024 11:14:48 10/10/20 24 10/11/2024 CBC WITH DIFFE RENTI AL/PL ATELE T RBC 4.55 x10e6 /uL 4.14-5 .80 Not Available [facility] ([facility]) [address] [facility], [place], [address], 10/11/2024 11:14:48 10/10/20 24 10/11/2024 CBC WITH DIFFE RENTI AL/PL ATELE T hemoglobin 14.5 g/dL 13.0-1 7.7 Not Available [facility] ([facility]) [address] [place], [address], 10/11/2024 11:14:48 10/10/20 24 10/11/2024 CBC WITH DIFFE RENTI AL/PL ATELE T hematocrit 42.6 % 37.5-5 1.0 Not Available [facility] ([facility]) [address] [place], [address], 10/11/2024 11:14:48 10/10/20 24 10/11/2024 CBC WITH DIFFE RENTI AL/PL ATELE T MCV 94 fL 79-97 Not Available [facility] ([facility]) [address] [facility], [place], [address], 10/11/2024 11:14:48 10/10/20 24 10/11/2024 CBC WITH DIFFE RENTI AL/PL ATELE T MCH 31.9 pg 26.6-3 3.0 Not Available [facility] ([facility]) [address] [facility], [place], [address], 10/11/2024 11:14:48 10/10/20 24 10/11/2024 CBC WITH DIFFE RENTI AL/PL ATELE T MCHC 34.0 g/dL 31.5-3 5.7 Not Available [facility] ([facility]) [address] [facility], [place], [address], 10/11/2024 11:14:48 10/10/20 24 10/11/2024 CBC WITH DIFFE RENTI AL/PL ATELE T RDW 11.8 % 11.6-1 5.4 Not Available [facility] ([facility]) [address] [facility], [place], [address], 10/11/2024 11:14:48 10/10/20 24 10/11/2024 CBC WITH DIFFE RENTI AL/PL ATELE T platelets 280 x10e3 /uL 150-45 0 Not Available [facility] ([facility]) [address] [facility], [place], [address], 10/11/2024 11:14:48 10/10/20 24 10/11/2024 CBC WITH DIFFE RENTI AL/PL ATELE T neutrophils 65 % notest ab. Not Available [facility] ([facility]) [address] [place], [address], 10/11/2024 11:14:48 10/10/20 24 10/11/2024 CBC WITH DIFFE RENTI AL/PL ATELE T lymphs 19 % notest ab. Not Available [facility] ([facility]) [address] [facility], [place], [address], 10/11/2024 11:14:48 10/10/20 24 10/11/2024 CBC WITH DIFFE RENTI AL/PL ATELE T monocytes 14 % notest ab. Not Available [facility] ([facility]) [address] [facility], [place], [address], 10/11/2024 11:14:48 10/10/20 24 10/11/2024 CBC WITH DIFFE RENTI AL/PL ATELE T eos 2 % notest ab. Not Available [facility] ([facility]) [address] [facility], [place], [address], 10/11/2024 11:14:48 10/10/20 24 10/11/2024 CBC WITH DIFFE RENTI AL/PL ATELE T basos 0 % notest ab. Not Available [facility] ([facility]) [address] [facility], [place], [address], 10/11/2024 11:14:48 10/10/20 24 10/11/2024 CBC WITH DIFFE RENTI AL/PL ATELE T neutrophils (absolute) 4.9 x10e3 /uL 1.4-7. 0 Not Available [facility] ([facility]) [address] [facility], [place], [address], 10/11/2024 11:14:48 10/10/20 24 10/11/2024 CBC WITH DIFFE RENTI AL/PL ATELE T lymphs (absolute) 1.5 x10e3 /uL 0.7-3. 1 Not Available [facility] ([facility]) [address] [facility], [place], [address], 10/11/2024 11:14:48 10/10/20 24 10/11/2024 CBC WITH DIFFE RENTI AL/PL ATELE T monocytes(ab solute) 1.1 x10e3 /uL 0.1-0. 9 above high normal Not Available [facility] ([facility]) [address] [place], [address], 10/11/2024 11:14:48 10/10/20 24 10/11/2024 CBC WITH DIFFE RENTI AL/PL ATELE T eos (absolute) 0.1 x10e3 /uL 0.0-0. 4 Not Available [facility] ([facility]) [address] [place], [address], 10/11/2024 11:14:48 10/10/20 24 10/11/2024 CBC WITH DIFFE RENTI AL/PL ATELE T baso (absolute) 0.0 x10e3 /uL 0.0-0. 2 Not Available [facility] ([facility]) [address] [place], [address], 10/11/2024 11:14:48 10/10/20 24 10/11/2024 CBC WITH DIFFE RENTI AL/PL ATELE T immature granulocytes 0 % notest ab. Not Available [facility] ([facility]) [address] [place], [address], 10/11/2024 11:14:48 10/10/20 24 10/11/2024 CBC WITH DIFFE RENTI AL/PL ATELE T immature grans (abs) 0.0 x10e3 /uL 0.0-0. 1 Not Available [facility] ([facility]) [address] [place], [address], 10/11/2024 11:14:48 10/10/20 24 10/11/2024 TRIIO DOTHY MARGAUX E (T3), FREE triiodothyro nine (T3), free 3.1 pg/mL 2.0-4. 4 Not Available [facility] ([facility]) [address] [place], [address], 10/11/2024 11:14:49 10/10/20 24 10/10/2024 influ lina virus A + B + SARS- CoV-2 (COVI D19) Ag panel , rapid IA, upper respi rator y speci men Flu A negati ve Not Available In-Office Order Internal Use Only DO Not Attach Compendium DO Not Attach Compendium, Do Not Delete/merge, [id number] 10/10/2024 11:28:29 10/10/20 24 10/10/2024 influ lina virus A + B + SARS- CoV-2 (COVI D19) Ag panel , rapid IA, upper respi rator y speci men Flu B negati ve Not Available In-Office Order Internal Use Only DO Not Attach Compendium DO Not Attach Compendium, Do Not Delete/merge, [id number] 10/10/2024 11:28:29 10/10/20 24 10/10/2024 influ lina virus A + B + SARS- CoV-2 (COVI D19) Ag panel , rapid IA, upper respi rator y speci men Rapid SARS CoV 2 Ag, QL IA, respiratory specimen negati ve Not Available In-Office Order Internal Use Only DO Not Attach Compendium DO Not Attach Compendium, Do Not Delete/merge, [id number] 10/10/2024 11:28:29 10/12/20 24 10/11/2024 XR, chest No observ ation record ed. [facility] [address], [place], [address], 10/17/2024 09:08:31 02/23/2002/22/2025 CT, abdom en + pelvi s, w/o contr ast No observ ation record ed. [facility] [address], [place], [address], 02/23/2025 11:00:05 Result Notes None recorded. Problems Name Problem SNOMED Code Status Onset Date Resolution Date Notes Provider Name and Address Organization Details Recorded Time Sandra 80140274 Active 024 Blaise Ham MA null, [place] [facility] 4 15:48:54 Eruption 778200410 Active 024 Blaise Ham [place], [place] [facility] 15:48:55 Asthma 007026763 Active 024 Ina Tran MD Attn: Accounting ,[address] [facility], [place], [address] , [place] [facility] 4 21:45:39 Problem Notes None recorded. Medical Equipment None Reported. Allergies Allergen ID Allergen Name Allergen Category Reaction Reaction Severity Criticality Documentation Date Start Date Code Code System Note Provider Name and Address Organization Details Recorded Time 129784 naproxen medicatio n Not available Not available Not available 10/10/2024 7258 RxNorm Adela Luke MA null, [place] [facility] 4 10:57:22 280577 prednison e medicatio n Not available Not available Not available 10/10/2024 8640 RxNorm Adela Luke [place], [place] [facility] 4 10:57:32 352347 celecoxib medicatio n rash Not available high 02/01/20252022 40894 7 RxNorm NATALIO [place], [place] - [facility] 5 10:15:20 Medications Name Sig Start Date Stop Date [...] Not Available Not Available Vitals Date Recorded Body height Body mass index (BMI) Body weight Heart rate Oxygen saturation Oxygen saturation in Arterial blood by Pulse oximetry Systolic blood pressure Diastolic blood pressure Provider Name and Address Organization Details Last Updated DateTime 5 170.18 cm 30.9 kg/m2 69254.4 9 g 69 /min 99 % 99 % 122 mm[Hg] 82 mm[Hg] [facility] 5 10:15:09 Date Recorded Heart rate Oxygen saturation Oxygen saturation in Arterial blood by Pulse oximetry Body height Body mass index (BMI) Body weight Systolic blood pressure Diastolic blood pressure Provider Name and Address Organization Details Last Updated DateTime 4 90 /min 99 % 99 % 170.18 cm 31 kg/m2 89833.2 9 g 136 mm[Hg] 82 mm[Hg] Fernanda Pathak MA [facility] 4 15:14:00 Date Recorded Body height Body mass index (BMI) Body weight Heart rate Oxygen saturation Oxygen saturation in Arterial blood by Pulse oximetry Systolic blood pressure Diastolic blood pressure Provider Name and Address Organization Details Last Updated DateTime 4 170.18 cm 31.7 kg/m2 94695.4 5 g 97 /min 97 % 97 % 110 mm[Hg] 70 mm[Hg] Adela Luke [facility] 4 10:56:03 Social History Question Answer Notes LastModified by Organizat ion Details LastModified Time Tobacco Smoking Status Never Smoker Fernanda Pathak MA null, [facility] 08/14/2024 15:16:14 Do You Have An Advance Directive? Yes Information n ot available 08/14/2024 Are You Blind Or Do [...] No Information not available 08/14/2024 Are You Deaf Or Do You Have Serious Difficulty Hearing? No Information not available 08/14/2024 What Type Of Diet Are You Following? REGULAR Information n ot available 08/14/2024 What Is The Highest Grade Or Level Of School You Have Completed Or The Highest Degree You Have Received? [id number] Information not available 08/14/2024 Are There Any [...] Functional Status Question Answer Note LastModified by Organizat ion Details LastModified Time Do you use any illicit or recreational drugs? No Information not available 08/14/2024 What is your level of alcohol consumption? Occasional Information not available 08/14/2024 Are you currently employed? Yes Information not available 08/14/2024 Are you able to care for yourself? Yes Information n ot available 08/14/2024 What is your exercise level? Moderate Information not available 08/14/2024 Mental Status None recorded. Family History Nothing Reported. Medical History Condition Response Asthma Y Immunizations Vaccine Type Date Status Note Provider Nam e and Address Organization Details Recorded Time MMR 2 completed Nazia Wakefield [place] null, [place] [...] tetanus toxoid, preservative free, adsorbed 7 completed Nazia [place], [place] [facility] 10/24/2024 12:06:01 Hep B, adolescent/high risk 7 completed Nazia Wakefield MA null, [place] - [facility] 10/24/2024 12:06:01 Hep B, adolescent/high risk infant 7 completed Nazia Wakefield MA null, [place] - [facility] 10/24/2024 12:06:01 Hep B, adult 7 completed Nazia Wakefield MA null, [place] - [facility] 10/24/2024 12:06:01 Past Encounters Encounter ID Performer Location Encounter Start Date Encounter Closed Date Diagnosis/Indication Diagnosis SNOMED-CT Code Diagnosis ICD10 Code Diagnosis Note [id number] Ina Tran MD [facility] [place] [address] [place] [phone] 08/14/2024 14:51:55 08/14/2024 15:52:28 Eruption 677342083 R21 Balanitis 31162512 N48.1 Screening for cardiovascular system disease 378424621 Z13.6 Long-term drug therapy 122221069 Z79.891 Asthma 136776941 J45.90 9 [id number] Ina Tran MD [facility] (Adult Med) [address] [place] [phone] 10/10/2024 10:41:13 10/10/2024 11:48:22 Body mass index 30+ - obesity 174701391 Z68.31 Overweight 321472614 E66 .3 Cough 24025896 R05.9 [id number] Ina Tran MD [facility] [place] [address] [place] [phone] 02/01/2025 10:04:28 02/01/2025 11:03:55 Body mass index 30+ - obesity 484520837 Z68.31 Overweight 671047548 E66 .3 Abscess of groin 8555303 9 L02.214 Health Concerns Section Related Observation [...] AFTER 2020 (MEDICAID REPLACEMENT - HMO) Hayden Carrlibby [id number] Hayden Rolando 10/10/2024 1 [employer] [facility] [place] - DOS ON OR AFTER 2020 (MEDICAID REPLACEMENT - HMO) Hayden Rolando [id number] Haydenrajesh Marshall 02/01/2025 1 [facility] - DOS ON OR AFTER 21 (MEDICAID REPLACEMENT - HMO) Hayden Rolando [id number] Hayden Carrlibby Notes Date Note Type Note Provider Name [...] alcohol is occasional Ina Tran MD Attn: Accounting,[address] [place], [address], [place] [facility] 08/19/2024 21:45:59 10/10/2024 text/html Cough congestion no wheezing yellow sputum a couple of weeks no travel no sick contacts at home incidentally he has not seen the urologist yet he is going in a couple of weeks Ina Tran MD Attn: Accounting[address] [facility], [place], [address], [place] [facility] 10/11/2024 22:59:05 02/01/2025 text/html abscess right groin ER incision and drainage but they could not get a lot of the pus out he said now it hurts still no fever no chills Ina Tran MD Attn: Accounting,[address] [place], [address], [place] [facility] 02/03/2025 16:33:03
== END 2025-04-06 17:38 | disposition home or self-care (01) ==
PROVIDERS: PCP Internal Medicine
DX: M51.360 Other intervertebral disc degeneration, lumbar region with discogenic back pain only (principal); M51.370 Other intervertebral disc degeneration, lumbosacral region with discogenic back pain only; M47.891 Other spondylosis, occipito-atlanto-axial region; M25.78 Osteophyte, vertebrae; M47.812 Spondylosis without myelopathy or radiculopathy, cervical region
CPT/HCPCS: 72040; 72100